=== PATIENT | female | born 1940 | race Caucasian/White ===

== ENCOUNTER 2017-06-12 18:15 | Observation (INO) | payer OTHER ==
--- NOTE | 2017-06-12 18:38 | CPEKG ---
Heart Rate: 69 RR Interval: 870 P-R Interval: 156 QRSD Interval: 88 QT Interval: 388 QTC Interval: 416 P [place]: 36 QRS [place]: -19 T Wave [place]: 33 EKG Severity - OTHERWISE NORMAL ECG - EKG Impression: SINUS RHYTHM EKG Impression: ATRIAL PREMATURE COMPLEX EKG Impression: BORDERLINE LEFT AXIS DEVIATION Electronically Signed By: Justin Flores 12-Jun-2017 20:51:52
--- NOTE | 2017-06-12 18:48 | EDPHY ---
H & P Time Seen by Provider: 06/12/17 18:28 HPI/ROS: CHIEF COMPLAINT: Pain in the left scapula HISTORY OF PRESENT ILLNESS: This 77-year-old woman has a family history of coronary disease with the father who had an DE at her age. She felt fine until yesterday. She today felt very very tired and developed at 1400 mild pain in the left shoulder blade in her back radiating to her left arm. She had throbbing in her left arm and extreme fatigue, not better worse with exertion or position. No shortness of breath or coughing. A little bit of radiation to the anterior surface of her left chest. Currently her symptoms are almost gone , except she still feels very very tired. REVIEW OF SYSTEMS: Eye: no change in vision ENT: no sore throat Cardiac: HPI Pulmonary: no cough or SOB Abdomen: no vomiting, diarrhea, abdominal pain , some associated nausea with the above symptoms but Musculoskeletal: no back pain or leg swelling Skin: no rash Neuro: no headache Constitutional: no fever : no urinary symptoms A comprehensive 10 point review of systems is otherwise negative aside from elements mentioned in the history of present illness. PAST MEDICAL HISTORY: Includes atrial fibrillation, appendectomy, hypothyroid, glaucoma, diverticulitis, DVT. Social history: Nonsmoker. Here with her . General Appearance: Alert and conversant, cooperative. Eyes: No scleral icterus. ENT, Mouth: Normal mucous membranes. Respiratory: Normal respiratory effort, breath sounds equal, lungs are clear to auscultation. Cardiovascular: Regular rate and rhythm. 3/6 systolic murmur which the patient says is not new. Gastrointestinal: Abdomen is soft and non tender. Neurological: Alert and oriented x3. Normally conversant. Face symmetric, normal movement and sensation in all extremities. Skin: Warm and dry, no rashes. Musculoskeletal: No peripheral edema and no joint swelling. No calf tenderness. Psychiatric: Not agitated. Emergency Department course/MDM: History is suspicious for ACS. EKG shows left axis but no ischemic changes. Admission for risk stratification, serial troponins. I think that pulmonary embolism would be unlikely with therapeutic INR. 1935: Jason, admit. Smoking Status: Never smoked Constitutional: Initial Vital Signs Temperature (C) 36.9 C 06/12/17 18:20 Heart Rate 77 06/12/17 18:20 Respiratory Rate 16 06/12/17 18:20 Blood Pressure 138/72 H 06/12/17 18:20 O2 Sat (%) 91 L 06/12/17 18:20 O2 Delivery Mode Room Air Allergies/Adverse Reactions: cephalexin [Cephalexin] Allergy (Intermediate, Verified 06/12/17 18:23) metronidazole [From Flagyl] Allergy (Verified 06/12/17 18:23) oxycodone Allergy (Verified 06/12/17 18:23) Home Medications: Medication Instructions Recorded Levothyroxine [Synthroid 100 mcg 100 mcg PO MOTUWETHFRSA@0600 12/03/15 (*)] Multivitamins [Multivitamin (*)] 1 each PO DAILY 12/03/15 Metoprolol Succinate Xr [Toprol Xl 25 mg PO DAILY #30 tab 12/04/15 25 mg (*)] Warfarin Sodium [Coumadin 7.5MG 7.5 mg PO DAILY@09 09/27/16 (*)] FLUTICASONE/SALMETEROL [ADVAIR HFA 2 puffs IH DAILY 06/12/17 230-21 MCG INHALER] Simvastatin [Zocor] 20 mg PO HS 06/12/17 Medical Decision Making - Diagnostics EKG Interpretation: 12-lead EKG interpreted by me; official reading is in trace master. My interpretation is sinus rhythm rate 69 with PAC and borderline left axis, no ST changes. Imaging Results: Imaging Impressions Chest X-Ray 06/12/17 18:47 Impression: 1. Mild cardiomegaly. No failure or acute process. 2. Chronic airways disease. Chest x-ray personally interpreted shows old left humerus hardware, otherwise negative. Differential Diagnosis: Differential diagnosis considered for chest pain including but not limited to myocardial ischemia, aortic dissection, pericarditis, pulmonary embolus, chest wall pain, pleural inflammation and pulmonary infectious causes. - Data Points Laboratory Results: Laboratory Results 06/12/17 18:40 06/12/17 18:40 06/12/17 06/12/17 06/12/17 18:40 18:40 18:40 WBC 4.10 10^3/uL 10^3/uL (3.80-9.50) RBC 4.05 10^6/uL L 10^6/uL (4.18-5.33) Hgb 12.7 g/dL g/dL (12.6-16.3) Hct 38.2 % % (38.0-47.0) MCV 94.3 fL fL (81.5-99.8) MCH 31.4 pg pg (27.9-34.1) MCHC 33.2 g/dL g/dL (32.4-36.7) RDW 13.8 % % (11.5-15.2) Plt Count 162 10^3/uL 10^3/uL (150-400) MPV 9.8 fL fL (8.7-11.7) Neut % (Auto) 61.6 % % (39.3-74.2) Lymph % (Auto) 19.5 % % (15.0-45.0) Ray % (Auto) 16.3 % H % (4.5-13.0) Eos % (Auto) 1.7 % % (0.6-7.6) Baso % (Auto) 0.7 % % (0.3-1.7) Nucleat RBC Rel Count 0.0 % % (0.0-0.2) Absolute Neuts (auto) 2.52 10^3/uL 10^3/uL (1.70-6.50) Absolute Lymphs (auto) 0.80 10^3/uL L 10^3/uL (1.00-3.00) Absolute Monos (auto) 0.67 10^3/uL 10^3/uL (0.30-0.80) Absolute Eos (auto) 0.07 10^3/uL 10^3/uL (0.03-0.40) Absolute Basos (auto) 0.03 10^3/uL 10^3/uL (0.02-0.10) Absolute Nucleated RBC 0.00 10^3/uL 10^3/uL (0-0.01) Immature Gran % 0.2 % % (0.0-1.1) Immature Gran # 0.01 10^3/uL 10^3/uL (0.00-0.10) PT 28.0 SEC H SEC (12.0-15.0) INR 2.58 H (0.83-1.16) APTT 35.6 SEC SEC (23.0-38.0) Sodium 137 mEq/L mEq/L (134-144) Potassium 4.2 mEq/L mEq/L (3.5-5.2) Chloride 104 mEq/L mEq/L (97-110) Carbon Dioxide 22 mEq/l mEq/l (22-31) Anion Gap 11 mEq/L mEq/L (8-16) BUN 22 mg/dL mg/dL (7-23) Creatinine 0.8 mg/dL mg/dL (0.6-1.0) Estimated GFR > 60 Glucose 99 mg/dL mg/dL (70-100) Calcium 8.8 mg/dL mg/dL (8.5-10.4) Troponin I < 0.012 ng/mL ng/mL (0.000-0.034) Departure - Departure Disposition: [facility] Inpatient Acute Clinical Impression: Chest pain Qualifiers: Chest pain type: unspecified Qualified Code(s): R07.9 - Chest pain, unspecified Condition: Good Referrals: CELESTINO BAZAN [Primary Care Provider] - As per Instructions
[2017-06-12 18:56] LABS: % IMMATURE GRANULYOCYTES 0.2 % (0.0-1.1); ABSOLUTE IMMATURE GRANULOCYTES 0.01 10^3/uL (0.00-0.10); ADD DIFF? NO; ADD MORPH? NO; ADD SCAN? NO; ATYPICAL LYMPHOCYTE FLAG 40 (0-99); FRAGMENT RBC FLAG 0 (0-99); HEMATOCRIT 38.2 % (38.0-47.0); HEMOGLOBIN 12.7 g/dL (12.6-16.3); LEFT SHIFT FLG 0 (0-99); LIPEMIA HEMOLYSIS FLAG 80 (0-99); MEAN CELL HEMOGLOBIN 31.4 pg (27.9-34.1); MEAN CELL HEMOGLOBIN CONCENTR. 33.2 g/dL (32.4-36.7); MEAN CELL VOLUME 94.3 fL (81.5-99.8); MEAN PLATELET VOLUME 9.8 fL (8.7-11.7); PLATELET CLUMPS FLAG 0 (0-99); PLATELET COUNT 162 10^3/uL (150-400); RED BLOOD CELL COUNT 4.05 10^6/uL (4.18-5.33); RED CELL DISTRIBUTION WIDTH 13.8 % (11.5-15.2)
[2017-06-12 19:02] LABS: ANION GAP 11 mEq/L (8-16); CALCIUM 8.8 mg/dL (8.5-10.4); CARBON DIOXIDE 22 mEq/l (22-31); CHLORIDE 104 mEq/L (97-110); CREATININE 0.8 mg/dL (0.6-1.0); GLOMERULAR FILTRATION RATE > 60; GLUCOSE 99 mg/dL (70-100); POTASSIUM 4.2 mEq/L (3.5-5.2); SODIUM 137 mEq/L (134-144)
[2017-06-12 19:06] LABS: INR 2.58 (0.83-1.16)
[2017-06-12 19:07] LABS: APTT 35.6 SEC (23.0-38.0)
[2017-06-12 19:14] LABS: TROPONIN I < 0.012 ng/mL (0.000-0.034)
[2017-06-12] MEDS ORDERED: ATORVASTATIN CALCIUM 10 MG TAB PO SCH (21:00)
[2017-06-12] MEDS ORDERED: ONDANSETRON DISINTEGRATING 4 MG TAB PO PRN (21:08)
[2017-06-12] MEDS ORDERED: ACETAMINOPHEN 325 MG TAB PO PRN (21:08)
[2017-06-12] MEDS ORDERED: ONDANSETRON 4 MG/2 ML VIAL IVP PRN (21:08)
--- NOTE | 2017-06-12 21:53 | GHP ---
[f rep st] HISTORY AND PHYSICAL DATE OF ADMISSION: 06/12/2017 CHIEF COMPLAINT: Left scapular and arm pain. HISTORY OF PRESENT ILLNESS: A 77-year-old female, with a history of atrial fibrillation, treated by Cardiology in [place], who presents with sudden onset this afternoon of left scapular aching pain. Th e patient reports feeling fatigued earlier in the morning, and then at approximately 1 p.m., had prog ressing achy discomfort of her left scapula that then had progressed and radiated down her left arm. The patient had persistent symptoms until her presented home at 5 p.m., at which time, they came to the emergency department. By 6 p.m., her symptoms had improved a little, and at the time of my interview they are nearly resolved. She denied any anterior chest pain, did have some associated shortness of breath and diaphoresis. No nausea or vomiting. The patient has had a stress test by [facility] outpatient director card in the last year and a half, which she reports is negative, had an echocard iogram performed at that time as well, which she reports as showing mitral valve regurgitation. The patient denies any changes in her bowel habits, urinary habits. Denies any lower extremity edema, my algias or arthralgias, upper respiratory symptoms, or dysuria. PAST MEDICAL HISTORY: 1. Atrial fibrillation, on anticoagulation. 2. Hypothyroidism. 3. Hyperlipidemia. SOCIAL HISTORY: Negative for tobacco, alcohol, or illicit drugs. FAMILY HISTORY: Positive for heart disease. Both parents developing coronary disease in their 70s. ADVANCED DIRECTIVES: Patient is full cor, full tube. REVIEW OF SYSTEMS: A 10-point review of systems is negative with the exception of that reported in t he HPI. PHYSICAL EXAMINATION: VITAL SIGNS: Blood pressure 121/76, heart rate 67, respiratory rate 16, 95% o n 2 L, 36.7. GENERAL: This is a healthy-appearing elderly female, lying flat in bed. HEENT: Notab le for moist mucous membranes. Eyes: Negative for any icterus. CARDIAC: Patient has regular rate and rhythm. Patient does have a loud systolic murmur heard best at the left sternal border. PULMONA RY: Good respiratory effort. Clear to auscultation. GASTROINTESTINAL: Positive bowel sounds. ABD OMEN: Soft. MUSCULOSKELETAL: Negative for any lower extremity edema. SKIN: Negative for any rash es. NEUROLOGIC: She is alert and oriented x3. PSYCHIATRIC: She is pleasant and cooperative on int erview and examination. LABORATORY DATA: White count is 4.1, hematocrit 38.2, platelets of 162. INR 2.5. Creatinine 0.8. T roponin less than 0.012. EKG, which I personally reviewed and interpreted, shows sinus rhythm, sourav l axis, normal intervals, with no acute ST-T changes. Chest x-ray, which I personally reviewed and i nterpreted, shows no acute infiltrates or edema. ASSESSMENT AND PLAN: This is a 77-year-old female, with a history of atrial fibrillation, and family history for coronary disease, who presents with complaints of scapular and arm pain. 1. Scapular/arm pain, certainly concerning for an anginal equivalent in this patient with hyperlipid emia and family history. We will rule the patient out with serial troponins and EKGs. If she rules out overnight on telemetry, we will order a Lexiscan in the morning. 2. Hypothyroidism. We will continue her Synthroid therapy. 3. Atrial fibrillation. The patient is currently in sinus rhythm. We will continue her anticoagula tion and metoprolol at her outpatient dosing. 4. Prophylaxis: Full-dose anticoagulation. DIET: Cardiac. DISPOSITION: I expect in less than 2 midnights if the patient rules out and has negative stress test ing. I have discussed the case with the emergency room physician. Patient will be triaged to the PCU for rule out and care. /[id number]/MODL
[2017-06-13 05:24] LABS: ANION GAP 9 mEq/L (8-16); CALCIUM 8.7 mg/dL (8.5-10.4); CARBON DIOXIDE 24 mEq/l (22-31); CHLORIDE 105 mEq/L (97-110); CREATININE 0.7 mg/dL (0.6-1.0); GLOMERULAR FILTRATION RATE > 60; GLUCOSE 83 mg/dL (70-100); SODIUM 138 mEq/L (134-144)
[2017-06-13 05:31] LABS: INR 2.61 (0.83-1.16); PROTIME(PATIENT) 28.2 SEC (12.0-15.0)
[2017-06-13] MEDS ORDERED: LEVOTHYROXINE 100 MCG TAB PO SCH (06:00)
[2017-06-13 07:59] VITALS: RESP 17
[2017-06-13] MEDS ORDERED: WARFARIN SODIUM 7.5 MG TAB PO SCH (09:00)
[2017-06-13] MEDS ORDERED: MULTIVITAMINS 1 EACH TAB PO SCH (09:00)
[2017-06-13] MEDS ORDERED: METOPROLOL SUCCINATE XR 25 MG TAB PO SCH (09:00)
[2017-06-13] MEDS ORDERED: Fluticasone/Salmeterol [Advair Hfa 230-21 Mcg Inhaler] IH SCH (09:00)
[2017-06-13] MEDS ORDERED: REGADENOSON 0.4 MG/5 ML SYR IVP ONE (09:34)
[2017-06-13] MEDS ORDERED: FLU VACC QS 2017-18 (3YR+)/PF 0.5 ML SYR (FLUARIX QUAD) IM ONE (10:00)
--- NOTE | 2017-06-13 11:17 | CPR ---
[f rep st] NONINVASIVE CARDIAC PROCEDURE REPORT PROCEDURE PERFORMED: Lexiscan injection of Lexiscan myocardial perfusion imaging study. INDICATION FOR PROCEDURE: Left arm and back pain, evaluation for acute coronary syndrome. Patient w ith known history of paroxysmal atrial fibrillation. PRE: After obtaining informed consent, ensuring the patient's n.p.o. status of caffeine for greater than 12 hours, she was placed on electrocardiogram. Initial EKG showed sinus rhythm, normal axis, no significant ST or T-wave abnormalities. Initial blood pressure 106/72, saturating 93% on 1 L nasal cannula. The patient denied any chest pain, shortness of breath, or symptoms suggesting ischemia. INJECTION: The patient was given Lexiscan slow IV push, followed by nuclear isotope. She was noted to have an elevated heart rate up to 90 beats per minute, with no significant EKG changes. No arrhyt hmias noted. Her blood pressure remained stable. She was fairly much asymptomatic of any side effec ts from the injection. Within 5 minutes, her heart rate returned down to 85 beats per minute. Final blood pressure 106/68, saturation 97%. Her vital signs were stable. IMPRESSION: 77-year-old female, being evaluated for cardiac ischemia. No significant EKG changes no laila with Lexiscan injection. No significant side effects. Vital signs are stable. She is finishing post-stress myocardial perfusion imaging in nuclear medicine at this time. /[id number]/MODL
[2017-06-13 11:18] VITALS: BP 121/57; PULSE 93; TEMP 97.6; O2SAT 91
--- NOTE | 2017-06-13 15:37 | GDS ---
[f rep st] DISCHARGE SUMMARY NEW AND ACUTE DIAGNOSES: 1. Chest pain, noncardiac in origin. 2. Atrial fibrillation in good control. 3. Anticoagulation adequate and in therapeutic range. CHRONIC DIAGNOSES: 1. Hypothyroidism. 2. Hyperlipidemia. 3. Reactive airway disease. CONSULTATION: Cardiology. PROCEDURES: Lexiscan Myoview showing no evidence of flow limitation, no evidence of ischemic induced or fixed ischemia, and a normal left ventricular ejection fraction. HOSPITAL COURSE: A 77-year-old female with a history of atrial fibrillation who presented with left scapular aching pain which lasted approximately 6 hours [employer] but resolved at the time of her evaluatio n in the emergency department. She was admitted. Serial troponins were negative. Lexiscan Myoview showed no evidence of ECG changes with Lexiscan and Myoview showed no evidence of induced or fixed ca rdiac ischemia. LV function was normal. She was pain free throughout the hospitalization. Her rhyt hm remained stable in atrial fibrillation and her Coumadin anticoagulation was within therapeutic ran ge of 2.6. The patient will be discharged to outpatient care. She has been reassured. The origin o f her pain is unclear at this time. Her wet pour mixer is Dr. Osorio at [facility]. DISCHARGE MEDICATIONS: These are the same as her admission medications. There are no deletions or a dditions. 1. Multivitamin daily. 2. Synthroid 100 mcg daily. 3. Toprol-XL 25 mg daily. 4. Coumadin 7.5 mg daily. 5. Simvastatin 20 mg daily. 6. Fluticasone and salmeterol inhaler 230/21 mcg inhaler 2 puffs b.i.d. The patient will follow up with her wet pour mixer, Dr. Osorio, or with Dr. Natalia Shaffer. Time: This discharge required 40 minutes, greater than 50% to student services counselor and coordinate her care and ex plain findings to the patient. /[id number]/MODL
--- NOTE | 2017-06-13 16:50 | ASDISCHSUM ---
Discharge Information Plan Status:Home with No Needs Medically Cleared to Leave: Discharge Date:06/13/2017 04:10 PM CM D/C Disposition:Home, Routine, Self-Care ADT D/C Disposition:Home, Routine, Self-Care Projected Discharge Date:06/13/2017 04:10 PM Transportation at D/C:Family Discharge Delay Reason: Follow-Up Date:06/13/2017 04:10 PM Discharge Slot: Final Diagnosis: Placement Information Patient Contact Information Contact Name:JUSTIN Relationship: Address:[address] City:[place] Alternate Phone: [facility]/Zip Code:[place] [address] Email: Financial Information Financial Class:HMO and PPO Plans Primary Plan Desc:[employer] PLAN Primary Plan Number:[id number] Secondary Plan Desc: Secondary Plan Number: Assessment Information Intervention Information
== END 2017-06-13 16:10 | disposition home or self-care (01) ==
LOC: F2W 21:14
PROVIDERS: ADMIT Hospitalist; ATTEND Internal Medicine Pulmonary Disease
DX: R07.89 Other chest pain (principal); I48.91 Unspecified atrial fibrillation; Z79.01 Long term (current) use of anticoagulants; E03.9 Hypothyroidism, unspecified; I10 Essential (primary) hypertension; J45.909 Unspecified asthma, uncomplicated; Z23 Encounter for immunization
CPT/HCPCS: 71020; 78452; 90471; 93005; 93017; A9500; G0378; G0008; J2785

== ENCOUNTER 2017-06-15 23:04 | Emergency (ER) | payer OTHER ==
[2017-06-15 23:09] VITALS: RESP 16; TEMP 97.9
--- NOTE | 2017-06-15 23:40 | EDPHY ---
H & P Stated Complaint: Nausea/fatigue/anxiety HPI/ROS: CHIEF COMPLAINT: Weakness, fatigue, nausea HISTORY OF PRESENT ILLNESS: Patient complains of 1 day history of weakness, feeling tired, feeling like she has no energy and nausea. The symptoms started abruptly this morning. They have been constant throughout the day. No chest pain, but did have some chest pain earlier this week. She was admitted on Saturday for that. Troponins were negative and she had a stress test done nuclear study on that was reportedly negative. Yesterday she felt quite well. Symptoms started about this morning. She has no fever but did feel 1 episode of diaphoresis. No abdominal complaints. No urinary complaints. No rash. Very weak when she attempts to ambulate. No other associated complaints or modifying factors. REVIEW OF SYSTEMS: Ten systems reviewed and are negative unless otherwise noted in the HPI PAST MEDICAL HISTORY: Hypothyroid, atrial fibrillation rate controlled, asthma, dyslipidemia PAST SURGICAL HISTORY: Orthopedic surgery SOCIAL HISTORY: Nonsmoker. Lives [place] her spouse FAMILY HISTORY: Noncontributory EXAMINATION General Appearance: Alert, no distress Head: normocephalic, atraumatic Eyes: Pupils equal and round, no conjunctival pallor or injection ENT, Mouth: Mucous membranes moist. Airway patent Neck: Normal inspection, supple, non-tender Respiratory: Lungs are clear to auscultation. No wheezing, rhonchi or crackles Cardiovascular: Irregularly irregular rhythm. Regular rate. Diastolic murmur Gastrointestinal: Abdomen is soft and nontender Back: non-tender, no bony abnormalities Neurological: GCS 15.A &O, nonfocal, normal gait Skin: Warm and dry, no rash. No petechiae or purpura Extremities: Nontender, no pedal edema Psychiatric: Mood and affect normal DIFFERENTIAL DIAGNOSES: Including but not limited to ACS, weakness, fluid, hypothyroid, UTI, pneumonia, electrolyte disturbance, dehydration MDM: 11:35 p.m. Nausea, fatigue, weakness and 69-year-old with strong family history of coronary artery disease. No coronary artery disease that she has been diagnosed with. Recent negative stress test after so troponins. She was feeling well until today. She has no cough or shortness of breath. No fever but did have episode of chills. No urinary complaints. Vital signs are within normal limits. Cardiac laboratory studies have been ordered, EKG ordered. She is in no acute distress. 12:30 a.m. Patient re-evaluated. Resting comfortably in no acute distress. EKG is normal. CBC normal. Remainder of laboratory studies are pending. 1:30 a.m. Patient re-evaluated. Laboratory studies are still pending regarding her troponin, TSH and influenza. Electrolytes are normal. Hemoglobin within acceptable limits. Vital signs remained stable. 1:55 a.m. Negative laboratory studies. No chest pain of any kind today or during her stay here. Her symptoms started this morning, thus the troponin is sensitive. I did offer admission for observation although I do not feel she warranted at this time. She has declined. She and her spouse feel more comfortable going home. I do feel that she is stable for discharge home. She has had multiple negative troponins and a negative stress test this week. She has excellent follow-up with her primary care physician and podiatric medicine doctor. We discussed strict ED precautions including return for any chest pain of any kind, worsening weakness or lethargy. She is comfortable with this plan and discharged home in stable condition. Her influenza and TSH test are pending at this time. She will follow up with those in the morning. Additionally, I will follow up with his laboratory studies tomorrow. Source: Patient, Family, Old records Exam Limitations: No limitations - Personal History Current Tetanus/Diphtheria Vaccine: Yes Current Tetanus Diphtheria and Acellular Pertussis (TDAP): Yes Tetanus Vaccine Date: 4 YEARS AGO - Medical/Surgical History Hx Asthma: No Hx Chronic Respiratory Disease: No Hx Diabetes: No Hx Cardiac Disease: Yes Hx Renal Disease: No Hx Cirrhosis: No Hx Alcoholism: No Hx HIV/AIDS: No Hx Splenectomy or Spleen Trauma: No Other PMH: APPY at 4Y/O, HYPOTHYROID, ARTHRITIS, glaucoma- surgical repair, diverticulitsis, bursitis- left hip, blood clots to legs 12 years ago, kidney stones currently, left arm humerus fx . asthma, afib - Social History Smoking Status: Never smoked Constitutional: Initial Vital Signs Temperature (C) 97.9 F 06/15/17 23:07 Heart Rate 72 06/15/17 23:07 Respiratory Rate 16 06/15/17 23:07 Blood Pressure 137/67 H 06/15/17 23:07 O2 Sat (%) 94 06/15/17 23:07 O2 Delivery Mode Room Air Allergies/Adverse Reactions: cephalexin [Cephalexin] Allergy (Intermediate, Verified 06/15/17 23:09) metronidazole [From Flagyl] Allergy (Verified 06/15/17 23:09) oxycodone Allergy (Verified 06/15/17 23:09) Home Medications: Medication Instructions Recorded Levothyroxine [Synthroid 100 mcg 100 mcg PO MOTUWETHFRSA@0600 12/03/15 (*)] Multivitamins [Multivitamin (*)] 1 each PO DAILY 12/03/15 Metoprolol Succinate Xr [Toprol Xl 25 mg PO DAILY #30 tab 12/04/15 25 mg (*)] Warfarin Sodium [Coumadin 7.5MG 7.5 mg PO DAILY@09/27/16 (*)] FLUTICASONE/SALMETEROL [ADVAIR HFA 2 puffs IH DAILY 06/12/17 230-21 MCG INHALER] Simvastatin [Zocor] 20 mg PO HS 06/12/17 Medical Decision Making - Data Points Laboratory Results: Laboratory Results 06/15/17 23:58 06/15/17 23:58 Departure - Departure Disposition: Home, Routine, Self-Care Clinical Impression: Weakness, Nausea Condition: Good Instructions: Weakness (ED) Additional Instructions: 1. Contact primary care physician for further care 2. Return to emergency department for worsening symptoms or any chest pain of any kind Referrals: CELESTINO BAZAN [Primary Care Provider] - As per Instructions KRISHNA DURAN [Non Staff Provider ()] - As per Instructions
--- NOTE | 2017-06-15 23:44 | CPEKG ---
Heart Rate: 63 RR Interval: 952 P-R Interval: 156 QRSD Interval: 90 QT Interval: 436 QTC Interval: 447 P Art[place]: 52 QRS [place]: 2 T Wave [place]: 29 EKG Severity - NORMAL ECG - EKG Impression: SINUS RHYTHM Electronically Signed By: John Guzman 16-Jun-2017 06:45:14
[2017-06-16 00:07] LABS: % IMMATURE GRANULYOCYTES 0.3 % (0.0-1.1); ABSOLUTE IMMATURE GRANULOCYTES 0.02 10^3/uL (0.00-0.10); ADD DIFF? NO; ADD MORPH? NO; ADD SCAN? NO; ATYPICAL LYMPHOCYTE FLAG 40 (0-99); FRAGMENT RBC FLAG 0 (0-99); HEMOGLOBIN 11.7 g/dL (12.6-16.3); LEFT SHIFT FLG 0 (0-99); LIPEMIA HEMOLYSIS FLAG 80 (0-99); MEAN CELL HEMOGLOBIN 31.5 pg (27.9-34.1); MEAN CELL HEMOGLOBIN CONCENTR. 33.4 g/dL (32.4-36.7); MEAN CELL VOLUME 94.3 fL (81.5-99.8); MEAN PLATELET VOLUME 9.9 fL (8.7-11.7); PLATELET CLUMPS FLAG 20 (0-99); PLATELET COUNT 179 10^3/uL (150-400); RED BLOOD CELL COUNT 3.71 10^6/uL (4.18-5.33); RED CELL DISTRIBUTION WIDTH 13.8 % (11.5-15.2)
[2017-06-16 00:17] LABS: APTT 34.9 SEC (23.0-38.0); INR 3.48 (0.83-1.16); PROTIME(PATIENT) 35.5 SEC (12.0-15.0)
[2017-06-16 01:06] LABS: ANION GAP 10 mEq/L (8-16); CARBON DIOXIDE 21 mEq/l (22-31); CHLORIDE 107 mEq/L (97-110); CREATININE 0.9 mg/dL (0.6-1.0); GLOMERULAR FILTRATION RATE > 60; GLUCOSE 100 mg/dL (70-100); POTASSIUM 4.3 mEq/L (3.5-5.2); SODIUM 138 mEq/L (134-144)
[2017-06-16 01:12] LABS: COLOR YELLOW; LEUKOCYTE ESTERASE,URINE NEGATIVE (NEGATIVE); NITRITE,URINE NEGATIVE (NEGATIVE)
[2017-06-16 01:15] LABS: MUCUS TRACE /lpf (NONE-1+)
[2017-06-16 01:38] LABS: TROPONIN I < 0.012 ng/mL (0.000-0.034)
[2017-06-16 02:14] VITALS: BP 134/69; PULSE 67; O2SAT 96
== END 2017-06-16 02:13 | disposition home or self-care (01) ==
DX: R53.1 Weakness (principal); R11.0 Nausea; J45.909 Unspecified asthma, uncomplicated; Z79.01 Long term (current) use of anticoagulants

== ENCOUNTER 2018-03-12 20:37 | Emergency (ER) | payer OTHER ==
--- NOTE | 2018-03-12 21:26 | EDPHY ---
H & P Stated Complaint: L LEG PAIN BEHIND THIGH/SINCE LAST NIGHT Source: Patient Exam Limitations: No limitations - Personal History Current Tetanus Diphtheria and Acellular Pertussis (TDAP): Yes Tetanus Vaccine Date: 4 YEARS AGO - Medical/Surgical History Hx Asthma: Yes Hx Chronic Respiratory Disease: No Hx Diabetes: No Hx Cardiac Disease: Yes Hx Renal Disease: No Hx Cirrhosis: No Hx Alcoholism: No Hx HIV/AIDS: No Hx Splenectomy or Spleen Trauma: No Other PMH: APPY at 4Y/O, HYPOTHYROID, ARTHRITIS, glaucoma- surgical repair, diverticulitsis, bursitis- left hip, blood clots to legs 12 years ago, kidney stones currently, left arm humerus fx . asthma, afib, SINUS SX - Social History Smoking Status: Never smoked Time Seen by Provider: 03/12/18 21:25 HPI/ROS: HPI: This is a 78-year-old female who presents with Chief Complaint: L LEG PAIN BEHIND THIGH/SINCE LAST NIGHT Location: Left leg Quality: Pain Duration: 24 hr Signs and Symptoms: No bleeding, no radiation, no numbness, no weakness, no tingling, no incontinence, no decreased range of motion, no swelling, + pain, no fever Timing: Acute Severity: [id number] Context: O patient reports that yesterday evening she started to feel mild, nonradiating cramping pain in the posterior left calf that was nonradiating in nature. She describes the pain as mild in intensity. She has had no trauma or injury. Her INR was 2 approximately 5 days ago. She reports compliance in taking her Coumadin. Patient reports that she has not had any strenuous activity. She denies a history of restless legs or muscle cramps. She has no shortness of breath or chest pain. She reports that she only has minimal pain at this time. She is ambulatory without any deficits. Modifying Factors: None Comment: ROS: see HPI Constitutional: No fever, no chills, no weight loss Eyes: No blurred vision Respiratory: No shortness of breath, no cough Cardiovascular: No chest pain Gastrointestinal: No nausea, no vomiting no diarrhea Genitourinary: No dysuria Extremities: No myalgias Neurologic: No weakness, no numbness Skin: No rashes Hematologic: No bruising, no bleeding MEDICAL/SURGICAL/SOCIAL HISTORY: Medical/surgical history: APPY at 4Y/O, HYPOTHYROID, ARTHRITIS, glaucoma- surgical repair, diverticulitis, bursitis- left hip, blood clots to legs 12 years ago, kidney stones currently, left arm humerus fx . asthma, afib, SINUS SX Social history: CONSTITUTIONAL: Elderly pleasant white female, awake and alert, no obvious distress HEENT: Atraumatic and normocephalic. NECK: supple, no midline tenderness, flexion 45 degrees, extension 45 degrees, right and left lateral flexion 45 degrees. No meningismus. Cardiovascular: Normal S1/S2, regular rate, regular rhythm, without murmur rub or gallop. PULMONARY/CHEST: Symmetrical and nontender. no crepitus. Clear to auscultation bilaterally. Good air movement. No accessory muscle usage. ABDOMEN: Soft, nondistended, nontender, no ecchymosis. PELVIC: no pain with rocking; bilateral hips flexion 125 degrees, extension 30 degrees, with no pain internal rotation and no pain external rotation. BACK: No midline tenderness, no paraspinous spasm, deep tendon reflexes 2/2, no pain with straight leg raise, No foot drop. Achilles reflexes are equal bilaterally. Able to walk on heels and toes without difficulty. EXTREMITIES: 2/2 pulses, strength 5/5, left calf shows no swelling, erythema, tenderness to palpation. No varicose vein. Legs are equal in size. Negative Homans sign. Varicose veins noted bilateral lower extremities. no deformities , no clubbing, no cyanosis or edema. NEUROLOGICAL: no focal neuro deficits. GCS 15. Light touch sensation intact. SKIN: Warm and dry, no erythema. no rash. Good capillary refill. (Juan Carlos,Terra) Constitutional: Initial Vital Signs Temperature (C) 36.5 C 03/12/18 20:42 Heart Rate 81 03/12/18 20:42 Respiratory Rate 16 03/12/18 20:42 Blood Pressure 138/63 H 03/12/18 20:42 O2 Sat (%) 93 03/12/18 20:42 O2 Delivery Mode Room Air Allergies/Adverse Reactions: cephalexin [Cephalexin] Allergy (Intermediate, Verified 06/15/17 23:09) metronidazole [From Flagyl] Allergy (Verified 06/15/17 23:09) oxycodone Allergy (Verified 06/15/17 23:09) Home Medications: Medication Instructions Recorded Levothyroxine [Synthroid 100 mcg 100 mcg PO MOTUWETHFRSA@0600 12/03/15 (*)] Multivitamins [Multivitamin (*)] 1 each PO DAILY 12/03/15 Metoprolol Succinate Xr [Toprol Xl 25 mg PO DAILY #30 tab 12/04/15 25 mg (*)] Warfarin Sodium [Coumadin 7.5MG 7.5 mg PO DAILY@09 09/27/16 (*)] FLUTICASONE/SALMETEROL [ADVAIR HFA 2 puffs IH DAILY 06/12/17 230-21 MCG INHALER] Simvastatin [Zocor] 20 mg PO HS 06/12/17 Medical Decision Making - Diagnostics Imaging Results: Imaging Impressions Extremity Venous Study 03/12/18 21:31 Impression: Chronic, nonocclusive femoral-popliteal venous thrombosis. Similar appearance to prior exam. ED Course/Re-evaluation: I did not see this patient while she was in the emergency department. However her care was discussed with the PA while the patient was in the department. I agree with treatment plan and management (Randy Byrd) Left lower extremity ultrasound and INR level ordered Left leg exam is completely benign. Vital signs reviewed upon arrival and stable. INR is 2.54 Ultrasound shows: Chronic, nonocclusive femoral-popliteal venous thrombosis. Similar appearance to prior exam. No signs of neurovascular compromise/tenting of skin/compartment syndrome/ extremities and joints examined above and below area of concern and are neurovascularly intact/cellulitis/for vascular disease. This patient was seen under the supervision of my secondary supervising physician. I evaluated care for this patient independently. Discussed this patient with Dr. Byrd who did not see the patient. (Brianne Rangel) Differential Diagnosis: Leg swelling including but not limited to hypoalbuminemia, congestive heart failure, cor pulmonale, chronic venous stasis and DVT. (Brianne Rangel) - Data Points Laboratory Results: Laboratory Results 03/12/18 21:56 03/12/18 03/12/18 21:56 21:56 PT 27.3 SEC H SEC (12.0-15.0) INR 2.54 H (0.83-1.16) Sodium 142 mEq/L mEq/L (135-145) Potassium 4.7 mEq/L mEq/L (3.3-5.0) Chloride 107 mEq/L mEq/L (97-110) Carbon Dioxide 21 mEq/l L mEq/l (22-31) Anion Gap 14 mEq/L mEq/L (8-16) BUN 21 mg/dL mg/dL (7-23) Creatinine 0.8 mg/dL mg/dL (0.6-1.0) Estimated GFR > 60 Glucose 114 mg/dL H mg/dL (70-100) Calcium 8.8 mg/dL mg/dL (8.5-10.4) Departure - Departure Disposition: Home, Routine, Self-Care Clinical Impression: Chronic deep vein thrombosis (DVT) of left lower extremity Qualifiers: Affected thrombotic vein of extremity: femoral Qualified Code(s): I82.512 - Chronic embolism and thrombosis of left femoral vein Condition: Good Instructions: Deep Vein Thrombosis (ED) Referrals: CELESTINO BAZAN [Primary Care Provider] - 5-7 days, if not improved
[2018-03-12 22:20] LABS: INR 2.54 (0.83-1.16); PROTIME(PATIENT) 27.3 SEC (12.0-15.0)
[2018-03-12 23:13] VITALS: BP 118/48
== END 2018-03-12 23:13 | disposition home or self-care (01) ==
DX: I82.512 Chronic embolism and thrombosis of left femoral vein (principal); J45.909 Unspecified asthma, uncomplicated

== ENCOUNTER → 2018-10-23 | Outpatient (CLI) | payer OTHER | LOC: FIMAGING 08:04 | PROVIDERS: ATTEND Radiology Diagnostic Radiology | DX: I83.019 Varicose veins of right lower extremity with ulcer of unspecified site (principal); I83.029 Varicose veins of left lower extremity with ulcer of unspecified site; Z86.718 Personal history of other venous thrombosis and embolism; Z79.01 Long term (current) use of anticoagulants ==

== ENCOUNTER 2018-11-24 18:20 | Inpatient (IN) | payer OTHER ==
--- NOTE | 2018-11-24 18:23 | EDPHY ---
H & P - Personal History Tetanus Vaccine Date: 4 YEARS AGO - Medical/Surgical History Hx Asthma: Yes Hx Chronic Respiratory Disease: No Hx Diabetes: No Hx Cardiac Disease: Yes Hx Renal Disease: No Hx Cirrhosis: No Hx Alcoholism: No Hx HIV/AIDS: No Hx Splenectomy or Spleen Trauma: No Other PMH: APPY at 4Y/O, HYPOTHYROID, ARTHRITIS, glaucoma- surgical repair, diverticulitsis, bursitis- left hip, blood clots to legs 12 years ago, kidney stones currently, left arm humerus fx . asthma, afib, SINUS SX - Social History Smoking Status: Never smoked Time Seen by Provider: 11/24/18 18:22 Constitutional: Initial Vital Signs Temperature (C) 36.7 C 11/24/18 18:20 Heart Rate 93 11/24/18 18:20 Respiratory Rate 20 11/24/18 18:20 Blood Pressure 156/80 H 11/24/18 18:20 O2 Sat (%) 87 L 11/24/18 18:20 O2 Delivery Mode Nasal Cannula O2 (L/minute) 2 Allergies/Adverse Reactions: cephalexin [Cephalexin] Allergy (Intermediate, Verified 11/25/18 09:39) Hives metronidazole [From Flagyl] Allergy (Verified 11/25/18 09:39) Vomiting oxycodone Allergy (Verified 11/25/18 09:39) Vomiting Home Medications: Medication Instructions Recorded Levothyroxine [Synthroid 100 mcg 100 mcg PO MOTUWETHFRSA@0600 12/03/15 (*)] Multivitamins [Multivitamin (*)] 1 each PO DAILY 12/03/15 Metoprolol Succinate Xr [Toprol Xl 25 mg PO DAILY #30 tab 12/04/15 25 mg (*)] Warfarin Sodium [Coumadin 7.5MG 7.5 mg PO SUTUTHSA 09/27/16 (*)] FLUTICASONE/SALMETEROL [ADVAIR HFA 2 puffs IH DAILY 06/12/17 230-21 MCG INHALER] Simvastatin [Zocor] 20 mg PO HS 06/12/17 Acetaminophen [Tylenol 325mg (*)] 650 mg PO Q6 PRN 11/25/18 Levothyroxine [Synthroid 50 mcg 50 mcg PO COLMENARES 11/25/18 (*)] Warfarin Sodium [Coumadin 7.5MG 3.75 mg PO MWF 11/25/18 (*)] Medical Decision Making ED Course/Re-evaluation: CHIEF COMPLAINT: Back pain HISTORY OF PRESENT ILLNESS: The patient is an anticoagulated (Warfarin) 78 y/o female with a history of atrial fibrillation, DVT and back pain arriving via EMS for back pain with left leg pain and weakness onset this morning. The patient is followed by a neurosurgeon at [facility] for her spinal and neurological problems; she last saw him 2 months ago. She denies having an MRI in the past but had an x-ray which revealed a "slipped disk". She woke up this morning and had back pain, so lied down in her bed on a hot pad. However, after lying down she was unable to move and get up, so she called EMS. No fever, headache, body aches, lightheadedness, chest pain, heart palpitations, shortness of breath, cough, abdominal pain, urinary or bowel complaints, numbness. REVIEW OF SYSTEMS: A 10 point review of systems was performed and is negative with the exception of the elements mentioned in the history of present illness. PHYSICAL EXAM: HR, BP, O2 Sat, RR. Temp noted General Appearance: Alert, well hydrated, appropriate, and non-toxic appearing. Head: Atraumatic without scalp tenderness or obvious injury Eyes: Pupils equal, round, reactive to light and accommodation, EOMI, no trauma , no injection. Ears: Clear bilaterally, no perforation, normal landmarks Nose: Atraumatic, no rhinorrhea, clear. Throat: There is no erythema or exudates, no lesions, normal tonsils, mucus membranes moist. Neck: Supple, 2+ carotid upstroke, nontender, no lymphadenopathy. Respiratory: No retractions, no distress, no wheezes, and no accessory muscle use. Lungs are clear to auscultation bilaterally. Cardiovascular: Regular rate and rhythm, no murmurs, rubs, or gallops. Bilateral carotid, radial, dorsalis pedis, and posterior tibial pulses intact. Good capillary refill all extremities. Gastrointestinal: Abdomen is soft, nontender, non-distended, no masses, no rebound, no guarding, no peritoneal signs. Musculoskeletal: Normal active ROM of all extremities, atraumatic. Neurological: Alert, appropriate, and interactive. The patient has normal DTRs and non-focal cranial nerves, motor, sensory, and cerebellar exam. Skin: No rashes, good turgor, no nodules on palpation. Past medical history: Hypothyroid, arthritis, glaucoma, diverticulosis, left hip bursitis, DVT, kidney stones, asthma, atrial fibrillation (on Warfarin) Past surgical history: Appendectomy, glaucoma surgery, sinus surgery Family history: Denies Social history: Lives in [place], , retired DIAGNOSTICS/PROCEDURES/CRITICAL CARE TIME: Lumbar MRI: Still pending at discharge DIFFERENTIAL DIAGNOSIS: The differential diagnosis for the patient's back pain included but was not limited to musculoskeletal pain, epidural abscess, herniated disk, spinal fracture, and intra-abdominal causes including urinary system. MEDICAL DECISION MAKING: The patient is an anticoagulated (Warfarin) 78 y/o female with a history of atrial fibrillation, DVT and back pain arriving via EMS presenting with back pain with left sided radiculopathy onset this morning. Due to this pain she is unable to ambulate. She is followed by a neurosurgeon at [facility] but has not had an MRI performed. Lumbar MRI ordered; 0.5mg IV Dilaudid administered. 2100: Patient care turned over to Dr. Wills at shift change. MRI still pending. (Sammy Murphy) The 9:50 p.m. We discussed the MRI results. The patient continues to have significant pain if she moves at all. She will require admission for pain control. We offered to [facility] or her neurosurgeon is. She states that she has only seen him once and would like to get a 2nd opinion here. Will add Valium and Decadron to her pain regimen. She states that she currently cannot get out of bed. She would like to go to the bathroom. 9:53 p.m. Discussed the case with Dr. Bertram Chapman who will consult tomorrow. 10:00 p.m. discussed the case with Dr. Redd who will admit. (Rocky Wills) Differential Diagnosis: Partial list of the Differential diagnosis considered include but were not limited to; radiculopathy, muscle strain, cord compression and although unlikely based on the history and physical exam, I also considered infection, fracture. (Rocky Wills) - Data Points Medications Given: Acetaminophen (Tylenol) 1,000 mg PO Q8HRS ELSA Stop: 05/23/19 22:29 Last Admin: 11/26/18 06:20 Dose: 1,000 mg Atorvastatin Calcium (Lipitor) 10 mg PO HS [facility] Stop: 05/24/19 20:59 Last Admin: 11/25/18 21:56 Dose: 10 mg Hydromorphone HCl (Dilaudid) 2 - 4 mg PO Q4HRS PRN PRN Reason: Pain, Severe Able to Take PO Stop: 12/04/18 22:27 Last Admin: 11/26/18 01:33 Dose: 2 mg Hydromorphone HCl (Dilaudid) 0.2 - 0.4 mg IVP Q2H PRN PRN Reason: Breakthrough pain Stop: 12/06/18 01:24 Last Admin: 11/26/18 06:20 Dose: 0.4 mg Levothyroxine Sodium (Synthroid) 100 mcg PO MOTUWETHFRSA@0600 [facility] Stop: 05/24/19 15:44 Last Admin: 11/26/18 06:20 Dose: 100 mcg Methocarbamol (Robaxin) 750 mg PO TID [facility] Stop: 05/24/19 21:59 Last Admin: 11/25/18 21:56 Dose: 750 mg Metoprolol Succinate (Toprol Xl) 25 mg PO DAILY [facility] Stop: 05/24/19 15:44 Last Admin: 11/25/18 17:11 Dose: 25 mg Miscellaneous Medication (Fluticasone/Salmeterol [Advair Hfa 230-21 Mcg Inhaler] ) 2 puffs IH DAILY [facility] Stop: 05/24/19 15:44 Last Admin: 11/25/18 16:57 Dose: Not Given Warfarin Sodium (Coumadin) 7.5 mg PO SuTuThSa@1600 [facility] Stop: 05/24/19 15:59 Last Admin: 11/25/18 17:11 Dose: 7.5 mg Discontinued Medications Dexamethasone (Decadron Injection) 10 mg IVP EDNOW ONE Stop: 11/24/18 22:02 Last Admin: 11/24/18 22:19 Dose: 10 mg Diazepam (Valium) 2.5 mg IVP EDNOW ONE Stop: 11/24/18 21:47 Last Admin: 11/24/18 21:50 Dose: 2.5 mg Diazepam (Valium) 5 mg PO ONCE ONE Stop: 11/26/18 06:06 Last Admin: 11/26/18 06:20 Dose: 5 mg Hydromorphone HCl (Dilaudid) 0.5 mg IVP EDNOW ONE Stop: 11/24/18 18:34 Last Admin: 11/24/18 18:55 Dose: 0.5 mg Hydromorphone HCl (Dilaudid) 2 mg PO Q4HRS PRN PRN Reason: Pain, Severe Able to Take PO Stop: 12/04/18 22:27 Last Admin: 11/25/18 23:45 Dose: 2 mg Prednisone (Prednisone) 20 mg PO ONCE ONE Stop: 11/25/18 17:56 Last Admin: 11/25/18 19:43 Dose: 20 mg Departure - Departure Disposition: [facility] Acute Clinical Impression: Low back pain Qualifiers: Chronicity: acute Back pain laterality: left Sciatica presence: with sciatica Sciatica laterality: sciatica of left side Qualified Code(s): M54.42 - Lumbago with sciatica, left side Radiculopathy Qualifiers: Spinal region: lumbar Qualified Code(s): M54.16 - Radiculopathy, lumbar region Condition: Fair Report Scribed for: aSmmy Murphy Report Scribed by: Shital Corea Date of Report: 11/24/18 Time of Report: 18:23
[2018-11-24] MEDS ORDERED: HYDROmorphONE/DILAUDID 2 MG/ML INJ IVP ONE (18:33)
[2018-11-24] MEDS ORDERED: DIAZEPAM 5 MG/ML 1 ML SYR IVP ONE (21:46)
[2018-11-24] MEDS ORDERED: DEXAMETHASONE 10 MG/ML VIAL IVP ONE (22:01)
[2018-11-24] MEDS ORDERED: ONDANSETRON 4 MG/2 ML VIAL IVP PRN (22:25)
[2018-11-24] MEDS ORDERED: ONDANSETRON DISINTEGRATING 4 MG TAB PO PRN (22:25)
[2018-11-24] MEDS: ACETAMINOPHEN 500 MG TAB PO SCH (22:35)
[2018-11-24] MEDS: HYDROmorphONE/DILAUDID 2 MG TAB PO PRN (23:28)
[2018-11-24 23:41] LABS: INR 2.18 (0.83-1.16); PROTIME(PATIENT) 24.3 SEC (12.0-15.0)
--- NOTE | 2018-11-25 00:27 | PDGENHP ---
History and Physical - Chief Complaint Back pain - History of Present Illness 78 yo F w/ AF, arthritis, and hypothyroid presents with back pain. The patient has been dealing with back pain and LLE radiculopathy for several weeks. She had an XR in the past and was told she had a "slipped disk". Today upon waking she noted a significant increase in her lower back pain. The pain was so severe that she has been unable to ambulate so she decided to come to the ED for evaluation. She denies red flag symptoms such as leg weakness, numbness, or loss of bowel or bladder control. In the ED an MRI was performed, which demonstrated diffuse disk bulge at L4-5 that may account for symptoms. She is being admitted for pain management and neurosurgical evaluation. Case discussed with Dr. Redd; records reviewed and summarized above. History Information - Allergies/Home Medication List Allergies/Adverse Reactions: cephalexin [Cephalexin] Allergy (Intermediate, Verified 11/24/18 18:34) metronidazole [From Flagyl] Allergy (Verified 11/24/18 18:34) oxycodone Allergy (Verified 11/24/18 18:34) Home Medications: Levothyroxine [Synthroid 100 mcg (*)] 100 mcg PO MOTUWETHFRSA@0600 12/03/15 [ Last Taken 06/12/17] Multivitamins [Multivitamin (*)] 1 each PO DAILY 12/03/15 [Last Taken 06/12/17] Warfarin Sodium [Coumadin 7.5MG (*)] 7.5 mg PO DAILY@09/27/16 [Last Taken 09:00] FLUTICASONE/SALMETEROL [ADVAIR HFA 230-21 MCG INHALER] 2 puffs IH DAILY [Last Taken 06/12/17] Simvastatin [Zocor] 20 mg PO HS 06/12/17 [Last Taken 06/11/17] I have personally reviewed and updated: family history, medical history - Past Medical History atrial fibrillation Additional medical history: Hypothyroid - Surgical History Additional surgical history: Venous ablation. Sinus surgery. L arm dory placement - Family History Positive for: CAD - Social History Smoking Status: Never smoked Review of Systems Review of Systems: ROS: 10pt was reviewed & negative except for what was stated in HPI & below Physical Exam Physical Exam: Temp Pulse Resp BP Pulse Ox 36.6 C 76 18 128/66 H 96 11/24/18 23:02 11/24/18 23:02 11/24/18 23:02 11/24/18 23:02 11/24/18 23:02 O2 (L/minute) 2 Constitutional: appears nourished, uncomfortable Eyes: PERRL, EOMI Ears, Nose, Mouth, Throat: moist mucous membranes, no oral mucosal ulcers Cardiovascular: regular rate and rhythym, systolic murmur Respiratory: no respiratory distress Gastrointestinal: normoactive bowel sounds, soft, non-tender abdomen Skin: warm, normal color Musculoskeletal: full muscle strength, no muscle tenderness Neurologic: AAOx3, CN II-XII Intact Psychiatric: interacting appropriately, not anxious Lab Data & Imaging Review 11/24/18 23:19 11/24/18 23:19 WBC 11.60 10^3/uL (3.80-9.50) H 11/24/18 23:19 RBC 4.23 10^6/uL (4.18-5.33) 11/24/18 23:19 Hgb 13.0 g/dL (12.6-16.3) 11/24/18 23:19 Hct 40.1 % (38.0-47.0) 11/24/18 23:19 MCV 94.8 fL (81.5-99.8) 11/24/18 23:19 MCH 30.7 pg (27.9-34.1) 11/24/18 23:19 MCHC 32.4 g/dL (32.4-36.7) 11/24/18 23:19 RDW 13.9 % (11.5-15.2) 11/24/18 23:19 Plt Count 244 10^3/uL (150-400) 11/24/18 23:19 PT 24.3 SEC (12.0-15.0) H 11/24/18 23:19 INR 2.18 (0.83-1.16) H 11/24/18 23:19 Sodium 136 mEq/L (135-145) 11/24/18 23:19 Potassium 4.2 mEq/L (3.5-5.2) 11/24/18 23:19 Chloride 104 mEq/L (97-110) 11/24/18 23:19 Carbon Dioxide 24 mEq/l (22-31) 11/24/18 23:19 Anion Gap 8 mEq/L (6-14) 11/24/18 23:19 BUN 14 mg/dL (7-23) 11/24/18 23:19 Creatinine 0.6 mg/dL (0.6-1.0) 11/24/18 23:19 Estimated GFR > 60 11/24/18 23:19 Glucose 131 mg/dL (70-100) H 11/24/18 23:19 Calcium 8.8 mg/dL (8.5-10.4) 11/24/18 23:19 Imaging Review: Imaging Impressions Lumbar Spine MRI 11/24/18 18:35 Impression: 1. Diffuse disk bulge or subligamentous disk herniation combines with facet hypertrophy resulting in moderate canal stenosis and bilateral lateral recess stenosis at the L4-L5 level. 2. Multilevel degenerative changes are noted. See above report for findings at specific levels Results called and discussed with Dr. Wills on 11/24/2018 21:32.. Assessment & Plan Assessment: 78 yo F w/ atrial fibrillation and hypothyroid presents with lower back pain. Plan: 1. Acute on chronic back pain - Patient with acute worsening of lower back pain today, also w/ LLE radiculopathy. MRI performed in the ED demonstrates L4-5 disk bulge, which may account for her symptoms. - Pain control with APAP madie + Dilaudid PRN - Neurosurgery consulted for evaluation, will see patient in the morning 2. Atrial fibrillation - On warfarin and metoprolol as an outpatient. - Continue warfarin for now, will need reversal if surgery recommended - Monitor daily INR - Continue metoprolol pending reconciliation 3. Hypothyroid - Continue LTX Diet - regular Code - Full Ppx - warfarin Dispo - Admit under observation status
[2018-11-25] MEDS: ACETAMINOPHEN 500 MG TAB PO SCH ×3 (08:02→21:56)
[2018-11-25 08:12] LABS: PLATELET COUNT 251 10^3/uL (150-400)
[2018-11-25] MEDS: HYDROmorphONE/DILAUDID 2 MG TAB PO PRN ×2 (08:13→23:45)
--- NOTE | 2018-11-25 08:26 | HOSPPROG ---
Hospitalist Progress Note Assessment/Plan: DIAGNOSES: * acute sciatic pain left leg with lumbar pain; limited mobility due to pain from this but at this point no loss of strength or bowel or bladder function * L4-5 disc protrusion * chronic atrial fibrillation paroxysmal on anticoagulant * chronic hypothyroidism on replacement therapy PLANS: * Will give prednisone today and tomorrow * Avoiding NSAIDs due to Coumadin * Will add Robaxin * Continue her Coumadin and thyroid replacement therapy * Will review with Neurosurgery once they have seen her x-rays * Due to ongoing problems with limited mobility, fall risk, and pain management will continued to manage here in the hospital, changed inpatient SUBJECTIVE: She has some improvement in her sciatica today and is moving little bit better No new symptoms No fever symptoms OBJECTIVE Vitals reviewed: Stable without fever Exam: alert oriented still appears uncomfortable skin warm dry color ok resps not labored lungs clear BSs heart regular iv site ok Imaging: I reviewed her lumbar spine flexion-extension images. There is a mild listhesis but I do not think this shows any abnormalities that would indicate at the moment anything beyond conservative therapy, need to review with Neurosurgery. Lab data: Stable metabolic panel On CBC slight increase in white blood cells slow likely due to steroid otherwise stable Objective: Vital Signs Temp Pulse Resp BP Pulse Ox 36.6 C 76 18 128/66 H 96 11/24/18 23:02 11/24/18 23:02 11/24/18 23:02 11/24/18 23:02 11/24/18 23:02 Laboratory Results 11/25/18 08:00 11/24/18 11/25/18 11/26/18 06:59 06:59 06:59 Intake Total 200 Output Total 0 Balance 200 PT 24.3 SEC (12.0-15.0) H 11/24/18 23:19 INR 2.18 (0.83-1.16) H 11/24/18 23:19 ICD10 Worksheet Patient Problems: Problems Problem Status Onset Low back pain Acute Radiculopathy Acute Atrial fibrillation Acute Chest pain Acute Hypothyroidism Acute Thrombophlebitis of saphenous vein Acute
[2018-11-25 08:28] LABS: INR 2.35 (0.83-1.16); PROTIME(PATIENT) 25.7 SEC (12.0-15.0)
--- NOTE | 2018-11-25 13:43 | ASMTCMCOM ---
CM Note CM Note Notes: Patient plan of care reviewed in am rounds. 78 year old female normally quite independent and plannin travel to [place] developed severe lower back pain and came to the ED. She has disc disease and pain is relieved with medications. Plan of care unclear at thsi time. Plan: Likely to dc to home independently when medically cleared for discharge. Date Signed: 11/25/2018 01:43 PM Electronically Signed By:Riana Bazzi RN
--- NOTE | 2018-11-25 14:32 | GCON ---
[f rep st] CONSULTATION NEUROSURGICAL CONSULTATION CHIEF COMPLAINT: Low back pain, left leg pain. HISTORY OF PRESENT ILLNESS: The patient is a 78-year-old female with a history of atrial fibrillatio n for which she is on Coumadin, hypothyroidism, and a nonhealing foot ulcer. She has a longstanding history of back pain over the course of several years. Several months ago, she developed low back pa in with pain in her left hip and some discomfort in her left lateral thigh. She underwent a course o f conservative care with continuum of care manager and physical therapy, with no significant improvement. On 11/24/2018, she was walking and developed a severe exacerbation of her back pain. It was difficult for her to make it to the bathroom due to the pain. She was admitted for pain control. Neurosurgica l consultation was requested. She currently complains of ongoing pain in her back with pain in her l eft hip. This is associated with some pain in her left lateral thigh. She can have paresthesias in her left lateral thigh. She does not feel that her legs are weak, and she denies any ataxia or bowel or bladder problems. Her pain is 0 to a 6 on a visual analog scale, with most of her pain in her lo w back and left hip. In the past, she has tried heat, rest, physical therapy, and continuum of care manager with no significant improvement. PAST MEDICAL HISTORY: 1. Atrial fibrillation. 2. Hypothyroidism. 3. Arthritis. 4. Reactive airway disease. MEDICATIONS PRIOR TO ADMISSION: Synthroid, multivitamin, Coumadin, metoprolol, and Advair. ALLERGIES: Keflex, Flagyl, and oxycodone. FAMILY HISTORY: The patient has no family history of spinal problems. SOCIAL HISTORY: The patient is with grown stepchildren. She denies smoking, drinking, or dr ug use. REVIEW OF SYSTEMS: Negative. PHYSICAL EXAM: GENERAL: The patient is a 78-year-old female lying in bed, in no apparent distress. HEAD, EYES, EARS, NOSE, AND THROAT: Negative for drainage. EXTREMITIES: [place], warm, and dry. RACH ROLOGICAL EXAM: The patient is awake, alert, and oriented x4. Pupils are equal, round, and reactive to light. Extraocular motions are intact. There is no evidence of facial droop. Tongue and uvula are midline. Spinal accessory muscles are intact. Her motor strength is 5/5 in her arms and legs. Her sensation is grossly intact to light touch in her arms and legs. Deep tendon reflexes are 1/4 in upper and lower extremities. There is a negative Freed with no clonus. DIAGNOSTIC STUDIES: An MRI of the lumbar spine from [facility] on 11/24/2018 sh ows preservation of the sagittal alignment. There are moderate multilevel degenerative changes. At L4-5, there is a grade 1 spondylolisthesis with moderate facet arthropathy and ligamentum hypertrophy that produces moderate left greater than right lateral recess stenosis. IMPRESSION: This is a 78-year-old female with a history of low back pain and left lower extremity ra dicular symptoms that are likely related to her L4-5 spondylolisthesis. She is neurologically stable . PLAN: All of the above issues were discussed in detail with the patient. This patient was seen and examined with Dr. Valladares, who was present. At this point in time, it was discussed with the patient that we would like to obtain plain films of her lumbar spine with flexion and extension views to eval te for any translational listhesis at L4-5. She is leaving for a trip for [place] in approximately 1 week, so we would like to try to manage her pain on a conservative basis. We would recommend p.o. or IV pain medications and antiinflammatory medications if needed. If her pain is not well controlle d, we can consider an L4-5 epidural steroid injection. However, given that she is on Coumadin and jeannine christensen has a nonhealing foot ulcer, we would be reluctant to move forward with this. If she fails an exte nsive course of conservative care, then she may benefit from an L4-5 transforaminal lumbar interbody fusion. We will obtain the new x-rays of her lumbar spine, and have her work with Physical therapy a nd Occupational therapy. They will make further treatment recommendations if her pain is not improvi ng. /[id number]/MODL
[2018-11-25] MEDS ORDERED: WARFARIN SODIUM 7.5 MG TAB PO SCH ×2 (16:00)
[2018-11-25] MEDS: SALMETEROL IH SCH (16:57)
[2018-11-25] MEDS: FLUTICASONE IH SCH (16:57)
[2018-11-25] MEDS: METOPROLOL SUCCINATE XR 25 MG TAB PO SCH (17:11)
[2018-11-25] MEDS: LEVOTHYROXINE 100 MCG TAB PO SCH (17:12)
[2018-11-25] MEDS ORDERED: predniSONE 20 MG TAB PO ONE (17:55)
[2018-11-25] MEDS: METHOCARBAMOL 750 MG TAB PO SCH (21:56)
[2018-11-25] MEDS: ATORVASTATIN CALCIUM 10 MG TAB PO SCH (21:56)
[2018-11-26] MEDS ORDERED: HYDROmorphONE/DILAUDID 1 MG/ML INJ IVP PRN (01:25)
[2018-11-26] MEDS: HYDROmorphONE/DILAUDID 2 MG TAB PO PRN ×2 (01:33→16:19)
[2018-11-26 05:14] LABS: INR 3.24 (0.83-1.16); PROTIME(PATIENT) 32.9 SEC (12.0-15.0)
[2018-11-26] MEDS ORDERED: DIAZEPAM 5 MG TAB PO ONE (06:05)
[2018-11-26] MEDS: HYDROmorphONE/DILAUDID 1 MG/ML INJ IVP PRN ×3 (06:20→23:28)
[2018-11-26] MEDS: ACETAMINOPHEN 500 MG TAB PO SCH ×3 (06:20→22:11)
[2018-11-26] MEDS: LEVOTHYROXINE 100 MCG TAB PO SCH (06:20)
--- NOTE | 2018-11-26 08:03 | SOAPPROG ---
SOAP Progress Note Assessment/Plan: Assessment: 78 yo F with low back pain and left hip/lateral thigh pain likely from L4/5 spondylolisthesis Plan: neuro: pain was well controlled yesterday but patient had bad night. discussed pain control options of medrol dose pack versus epidural injection with patient INR 3.24 this am, will discuss with IR, they may be able to do caudal epidural injection without reversing INR, if not then we would likely lean towards po steroids will add neurontin 200mg po tid continue PT/OT ok to discharge if pain is controlled, follow up with Dr Valladares ([phone]) in 2 weeks please call with neuro changes 11/26/18 07:59 11/26/18 08:03 Subjective: continued back pain, left hip pain, pain was bad overnight. No weakness, no Bowel/bladder changes Objective: Vital Signs Temp Pulse Resp BP Pulse Ox 36.5 C 89 16 130/63 H 93 11/26/18 04:28 11/26/18 04:28 11/26/18 04:28 11/26/18 04:28 11/26/18 04:28 Laboratory Results 11/25/18 08:00 11/25/18 08:00 11/25/18 11/26/18 11/27/18 05:59 05:59 05:59 Intake Total 200 3200 Output Total 0 Balance 200 3200 PT 32.9 SEC (12.0-15.0) H 11/26/18 04:46 INR 3.24 (0.83-1.16) H 11/26/18 04:46 AAOx4, +FC PERRL, EOMI, no facial droop 5/5 + light touch ICD10 Worksheet Patient Problems: Problems Problem Status Onset Low back pain Acute Radiculopathy Acute Atrial fibrillation Acute Chest pain Acute Hypothyroidism Acute Thrombophlebitis of saphenous vein Acute
[2018-11-26] MEDS: METOPROLOL SUCCINATE XR 25 MG TAB PO SCH (09:45)
[2018-11-26] MEDS: METHOCARBAMOL 750 MG TAB PO SCH ×3 (09:47→22:11)
[2018-11-26] MEDS: MULTIVITAMINS 1 EACH TAB PO SCH (09:47)
[2018-11-26] MEDS: SALMETEROL IH SCH (10:32)
[2018-11-26] MEDS: FLUTICASONE IH SCH (10:32)
[2018-11-26] MEDS ORDERED: PHYTONADIONE 10 MG in NS 50 ML IV ONE (10:45)
[2018-11-26] MEDS: GABAPENTIN 300 MG CAP PO SCH ×2 (11:40→20:50)
[2018-11-26] MEDS: predniSONE 20 MG TAB PO SCH (11:40)
--- NOTE | 2018-11-26 12:27 | ASMTCMCOM ---
CM Note CM Note Notes: Patient plan of care reviewed in am rounds. Medications adjusted as patient having back pain r/t L 4-5 disc protrusion. May require interventional radiology for epidural injection. Patient normally independent. No needs identified at this time. Plan: Likey to dc home after medically cleared. Date Signed: 11/26/2018 12:15 PM Electronically Signed By:Riana Bazzi RN
--- NOTE | 2018-11-26 12:35 | PDMN ---
Medical Necessity Medical necessity: Change to inpt as of 11/25/18 @ 18:11, pt meets inpt criteria per MD order and MCG M-63, back pain. 78 y/o admitted w/worsening lower back pain and LLE radiculopathy, MRI showed L4-5 disk bulge. Upgraded to inpt for ongoing acute sciatic pain L leg and lumbar pain w/limited mobility due to pain , still needing IV Dilaudid in addition to PO pain meds, adding steroid, neurosurg consult. Est LOS>2MN for ongoing eval/management of above.
--- NOTE | 2018-11-26 15:04 | HOSPPROG ---
Hospitalist Progress Note Assessment/Plan: DIAGNOSES: * acute sciatic pain left leg with lumbar pain; limited mobility due to pain from this but at this point no loss of strength or bowel or bladder function * L4-5 disc protrusion * chronic atrial fibrillation paroxysmal on anticoagulant * chronic hypothyroidism on replacement therapy PLANS: * Continue prednisone * I added gabapentin today * Continue analgesic and muscle relaxers * Avoiding NSAIDs due to Coumadin and history of ulcers * Currently holding her Coumadin and giving vitamin K with a high INR and a likelihood that she may need epidural injection * I reviewed with Neurosurgery team today in detail. At this point the patient has ongoing severe pain and is quite debilitated with severely limited mobility. She is a reasonable candidate to do an epidural steroid injection but we would need to reverse her Coumadin for that. Also Dr. Fry feels that her L4-5 mobility may require that she eventually has a fusion to manage her symptoms. He would like to try conservative therapy before committing to this * Due to ongoing problems with limited mobility, fall risk, and pain management will continued to manage here in the hospital Seen by me today on hospitals rounds as well as multidisciplinary rounds I reviewed with Mahamed Bartholomew and Dr. Fry of Neurosurgery today SUBJECTIVE: She had a terrible night with much increased lumbar back pain, barely able to move to get from her bed to commode with assistance. Her sciatica in the left leg is a bit better today but still present. No new weakness or bowel bladder function issues OBJECTIVE Vitals reviewed: Stable without fever Exam: alert oriented appears quite uncomfortable today skin warm dry color ok resps not labored lungs clear BSs heart regular Abdomen unremarkable No weakness iv site ok Imaging: I reviewed her lumbar spine flexion-extension images. There is a mild listhesis but I do not think this shows any abnormalities that would indicate at the moment anything beyond conservative therapy, need to review with Neurosurgery. Lab data: Stable metabolic panel On CBC slight increase in white blood cells slow likely due to steroid otherwise stable Objective: Vital Signs Temp Pulse Resp BP Pulse Ox 36.2 C 74 16 122/71 H 95 11/26/18 12:32 11/26/18 12:32 11/26/18 12:32 11/26/18 12:32 11/26/18 12:32 11/25/18 11/26/18 11/27/18 06:59 06:59 06:59 Intake Total 1999 Balance 1999 PT 32.9 SEC (12.0-15.0) H 11/26/18 04:46 INR 3.24 (0.83-1.16) H 11/26/18 04:46 - Time Spent With Patient Time Spent with Patient: greater than 35 minutes Time Spent with Patient: Greater than 35 minutes spent on this patients care, greater than 50% of time spent counseling, educating, and coordinating care regarding the above mentioned plan. ICD10 Worksheet Patient Problems: Problems Problem Status Onset Low back pain Acute Radiculopathy Acute Atrial fibrillation Acute Chest pain Acute Hypothyroidism Acute Thrombophlebitis of saphenous vein Acute
[2018-11-26] MEDS ORDERED: WARFARIN SODIUM 7.5 MG TAB PO SCH ×2 (16:00)
[2018-11-26] MEDS: ATORVASTATIN CALCIUM 10 MG TAB PO SCH (20:50)
[2018-11-27] MEDS: LEVOTHYROXINE 100 MCG TAB PO SCH (05:01)
[2018-11-27] MEDS: ACETAMINOPHEN 500 MG TAB PO SCH ×3 (05:01→20:56)
[2018-11-27] MEDS: HYDROmorphONE/DILAUDID 2 MG TAB PO PRN ×3 (05:02→14:42)
[2018-11-27 06:11] LABS: INR 1.2 (0.83-1.16); PROTIME(PATIENT) 14.7 SEC (12.0-15.0)
--- NOTE | 2018-11-27 07:23 | SOAPPROG ---
ANA MARIA Progress Note Assessment/Plan: Assessment: 78 yo F with low back pain and left hip/lateral thigh pain likely from L4/5 spondylolisthesis Plan: neuro: continued back pain with pain in her left hip. patient requiring 2-4 mg of po dilaudid, will order L4/5 epidural injection for today since INR is normalized NPO until injection then regular diet INR 1.2 this am continue PT/OT ok to discharge if pain is controlled, follow up with Dr Valladares ([phone]) in 2 weeks please call with neuro changes 11/26/18 07:59 11/26/18 08:03 11/27/18 07:20 Subjective: continued back pain and left hip pain Objective: Vital Signs Temp Pulse Resp BP Pulse Ox 36.6 C 72 18 116/61 94 11/27/18 04:42 11/27/18 04:42 11/27/18 04:42 11/27/18 04:42 11/27/18 04:42 11/26/18 11/27/18 11/28/18 05:59 05:59 05:59 Intake Total 2000 1200 Balance 2000 1200 PT 14.7 SEC (12.0-15.0) 11/27/18 05:24 INR 1.20 (0.83-1.16) H 11/27/18 05:24 AAOx4, +FC PERRL, EOMI, no facial droop 5/5 + light touch ICD10 Worksheet Patient Problems: Problems Problem Status Onset Low back pain Acute Radiculopathy Acute Atrial fibrillation Acute Chest pain Acute Hypothyroidism Acute Thrombophlebitis of saphenous vein Acute
[2018-11-27] MEDS: GABAPENTIN 300 MG CAP PO SCH ×2 (09:00→20:56)
[2018-11-27] MEDS: METOPROLOL SUCCINATE XR 25 MG TAB PO SCH (09:01)
[2018-11-27] MEDS: METHOCARBAMOL 750 MG TAB PO SCH ×3 (09:01→20:56)
[2018-11-27] MEDS: predniSONE 20 MG TAB PO SCH (09:01)
[2018-11-27] MEDS: MULTIVITAMINS 1 EACH TAB PO SCH (09:01)
[2018-11-27] MEDS: FLUTICASONE IH SCH (10:07)
[2018-11-27] MEDS: SALMETEROL IH SCH (10:07)
[2018-11-27] MEDS ORDERED: IOPAMIDOL (ISOVUE-M 300) 15 ML VIAL ONE (10:33)
[2018-11-27] MEDS ORDERED: TRIAMCINOLONE ACETONIDE 200 MG/5 ML MDV IM ONE (10:34)
--- NOTE | 2018-11-27 16:44 | ASMTCMCOM ---
CM Note CM Note Notes: Patient had a lumbar ARCHIE today and is feeling better although still not clinically ready for d/c. She is using a cane to ambulate. MD feels that she will be ready for discharge tomorrow. Per UR department, this hospital is out of network for patient. MD notified and still advocates for her admission for one more night for continued stabilization. Anticipate d.c. home indepdendent tomorrow, 11/28 Date Signed: 11/27/2018 04:43 PM Electronically Signed By:Hannah Lua RN
[2018-11-27] MEDS: ATORVASTATIN CALCIUM 10 MG TAB PO SCH (20:57)
--- NOTE | 2018-11-27 22:04 | HOSPPROG ---
Hospitalist Progress Note Assessment/Plan: DIAGNOSES: * acute sciatic pain left leg with lumbar pain; limited mobility due to pain from this but at this point no loss of strength or bowel or bladder function * L4-5 disc protrusion * status post epidural steroid injection 11/27 today * chronic atrial fibrillation paroxysmal on anticoagulant * chronic hypothyroidism on replacement therapy The patient has notable improvement in her pain and mobility today but is still using a walker and somewhat unsteady on her feet requiring an pizza hut assistant be with her. I believe she will be likely improved enough to go home tomorrow but she and I both did not feel quite safe with her going home today PLANS: * Continue prednisone * Continue gabapentin current dose * Continue analgesic and muscle relaxers p.r.n. * Avoiding NSAIDs due to Coumadin and history of ulcers * Will resume her Coumadin tomorrow * Probable discharge to home tomorrow SUBJECTIVE: The patient had epidural injection this morning which was uncomplicated and she tolerated it well Since then she has been able to get up and ambulate with a walker though still with quite a bit of pain doing that, a bit unsteady on her feet and worried that she might fall be changed from yesterday overall. Sciatica pain legs remains mild, the main to severe pain is still in the lumbar area No bowel or bladder dysfunction symptoms OBJECTIVE Vitals reviewed: Stable without fever Exam: alert oriented appears notably more comfortable today skin warm dry color ok resps not labored lungs clear BSs heart regular No weakness in legs as best can be assessed with her pain iv site ok Objective: Vital Signs Temp Pulse Resp BP Pulse Ox 36.6 C 86 16 131/63 H 92 11/27/18 20:49 11/27/18 20:49 11/27/18 20:49 11/27/18 20:49 11/27/18 20:49 11/26/18 11/27/18 11/28/18 06:59 06:59 06:59 Intake Total 1999 1200 300 Balance 1999 1200 300 PT 14.7 SEC (12.0-15.0) 11/27/18 05:24 INR 1.20 (0.83-1.16) H 11/27/18 05:24 ICD10 Worksheet Patient Problems: Problems Problem Status Onset Low back pain Acute Radiculopathy Acute Atrial fibrillation Acute Chest pain Acute Hypothyroidism Acute Thrombophlebitis of saphenous vein Acute
[2018-11-28 05:33] LABS: INR 1.08 (0.83-1.16); PROTIME(PATIENT) 14.2 SEC (12.0-15.0)
[2018-11-28] MEDS: LEVOTHYROXINE 100 MCG TAB PO SCH (05:52)
[2018-11-28] MEDS: ACETAMINOPHEN 500 MG TAB PO SCH ×2 (05:52→13:08)
[2018-11-28] MEDS: HYDROmorphONE/DILAUDID 2 MG TAB PO PRN ×2 (05:59→17:23)
[2018-11-28] MEDS: METOPROLOL SUCCINATE XR 25 MG TAB PO SCH (08:53)
[2018-11-28] MEDS: predniSONE 20 MG TAB PO SCH (08:53)
[2018-11-28] MEDS: MULTIVITAMINS 1 EACH TAB PO SCH (08:54)
[2018-11-28] MEDS: METHOCARBAMOL 750 MG TAB PO SCH ×2 (08:54→15:56)
[2018-11-28] MEDS: GABAPENTIN 300 MG CAP PO SCH (08:54)
[2018-11-28] MEDS: FLUTICASONE IH SCH (09:11)
[2018-11-28] MEDS: SALMETEROL IH SCH (09:11)
[2018-11-28 11:13] VITALS: BP 118/61
[2018-11-28] MEDS ORDERED: LACTULOSE 20 GM/30 ML UDCUP PO PRN (11:47)
[2018-11-28] MEDS ORDERED: MAGNESIUM HYDROXIDE 30 ML UDCUP PO PRN (11:47)
[2018-11-28] MEDS ORDERED: BISACODYL 10 MG SUPP PR PRN (11:47)
[2018-11-28] MEDS ORDERED: POLYETHYLENE GLYCOL 3350 17 GM PKT PO PRN (11:47)
--- NOTE | 2018-11-28 15:16 | PDDCSUM ---
Discharge Summary Discharge Summary: DISCHARGE DIAGNOSES: -acute sciatica left leg -Severe lower back pain -impaired mobility due to above -atrial fibrillation, chronic paroxysmal on anticoagulant CONSULTANTS: Dr. Valladares of Neurosurgery PROCEDURES: MRI of lumbar spine Epidural steroid injection of lumbar spine at L4-5 HOSPITAL COURSE SUMMARY: This patient who does not have any history of spine injury surgery came in with severe left-sided sciatica and lumbar pain, unable to move. There is quite a bit of neuropathic pain into the left leg and quite a bit of spasm in the back. There were no findings of sensory loss or weakness and there were no bowel or bladder symptoms. She was however unable to roll over in bed and get up from lying supine at all upon arrival. She was treated in the ER with measures to attempt to get back pain control but she was unable to achieve adequate pain control in the ER. An MRI was done showing L4-5 disc protrusion consistent with her left-sided sciatica. Flexion- extension x-rays were done showing some movement at L4-5 that was concerning. The patient was seen by the Neurosurgery team and it was felt that she could be treated conservatively with oral medications, therapies, and an epidural steroid injection, but if he did not resolve with these she might need surgery. However surgery would likely involve effusion given the movement seen on her x -rays. There was no clinical or radiologic concern for fracture tumor or infection. At this point the patient has been treated with prednisone, muscle relaxer, gabapentin and has had an epidural steroid injection. We have not use nonsteroidal anti-inflammatories because she is on Coumadin for AFib. She also has a history of recurrent stomach ulcers. With these measures and with physical therapy and rest she has improved to point where she can get up and move around reasonably well with a walker and she feels comfortable going home. She is felt stable for discharge to home. She will continue on 2 more days of oral steroid, continue on the gabapentin and she is given some p.r.n. Dilaudid analgesics. Here in the hospital we did stop her Coumadin and reverse it to do the epidural steroid injection as her INR was greater than 3, but she is to resume her Coumadin at this time. PENDING TEST RESULTS: None MEDICATION CHANGES: Addition of: * gabapentin 300 mg twice daily * Robaxin 750 mg three times daily * Dilaudid 2-4 mg every 6 hr as needed, 1 week supply * prednisone 20 mg daily for 2 more days * laxative and stool softener as needed FOLLOW-UP PLAN: She will see Dr. Nagy in Neurosurgery Clinic in 1-2 weeks Greater than 35 minutes bedside and care coordination time today
--- NOTE | 2018-11-28 15:56 | ASMTCMCOM ---
CM Note CM Note Notes: CM met with patient to give [employer] and DME information for a walker. The patient is eager to leave today, states understanding she will need to transfer to a [facility] Facility today as [facility] is out of network. A friend of the patient was in the room and offered to go to the [facility] to pick up worker a loan walker. Patient will discharge home with . Patient has contact information for Dr. Hunter Burgess to follow up. CM to follow. D/C Plan: home independent. Date Signed: 11/28/2018 03:55 PM Electronically Signed By:Anny Perez
[2018-11-28] MEDS ORDERED: SENNOSIDES/DOCUSATE SODIUM TAB PO SCH (21:00)
[2018-11-30] MEDS ORDERED: LEVOTHYROXINE 50 MCG TAB PO SCH (15:32)
== END 2018-11-28 19:10 | disposition home or self-care (01) | DRG 552 ==
LOC: EDUNIT# → F1N 22:53 → OBSVTOIN 11-25 18:11
PROVIDERS: ADMIT Student in an Organized Health Care Education/Training Program; ATTEND Internal Medicine
DX: M51.16 Intervertebral disc disorders with radiculopathy, lumbar region (principal); M51.26 Other intervertebral disc displacement, lumbar region; M43.16 Spondylolisthesis, lumbar region; I48.0 Paroxysmal atrial fibrillation; E03.9 Hypothyroidism, unspecified; J45.909 Unspecified asthma, uncomplicated; Z79.01 Long term (current) use of anticoagulants
CPT/HCPCS: 96374; G0378; J1100; J1170; J3301; J3360; J3430; J7512; Q9967

== ENCOUNTER 2019-01-01 15:48 | Observation (INO) | payer OTHER ==
--- NOTE | 2019-01-01 16:05 | EDPHY ---
HPI/HX/ROS/PE/MDM Narrative: CHIEF COMPLAINT: Chest pain. HPI: The patient is a 78-year-old female with a history of atrial fibrillation. She reports feeling poorly over the last 2 weeks. She was seen by her primary physician last week with negative lab test. Today she was running errands and when she got out of her car she felt very flushed and developed some left-sided chest pain and mild shortness of breath. Her chest pain largely resolved but now she complains of some left upper abdominal discomfort and an indigestion type feeling. REVIEW OF SYSTEMS: Aside from elements discussed in the HPI, a comprehensive 10-point review of systems was reviewed and is negative. PMH: Atrial fibrillation, history of admission to the hospital for chest pain in 2017 with negative workup. SOCIAL HISTORY: Denies alcohol or drug abuse. PHYSICAL EXAM: General:Patient is alert, in no acute distress. ENT:Eyes are normal to inspection. ENT inspection normal. Neck: Normal inspection. Full range of motion. Respiratory:No respiratory distress. Breath sounds normal bilaterally. Cardiovascular: Regular rate and rhythm. Strong peripheral pulses. Normal cap refill. Abdomen:The abdomen is nontender to palpation. There are no peritoneal signs. There are normal bowel sounds. Back: Normal to inspection. No tenderness to palpation. Skin: Normal color. No rash. Warm and dry. Extremities: Bilateral compression stockings are noted. Neuro: Oriented x3. Normal motor function. Normal sensory function. ED Course: EKG was ordered and interpreted by myself. Please see [facility] system for official reading. No signs of ACS. Patient noted to be 86%RA after ambulation. She states she wears oxygen at night and that this is not unusual. MDM: This patient presents with an episode of chest pain in the setting of a week of malaise. Her ECG and troponin are negative. Given age and risk factors, I offered her admission for further evaluation and she would like to pursue this. I see no signs of ACS, TAD, Ptx,PNA. - Data Points Imaging Results: Imaging Impressions Chest X-Ray 01/01/19 15:59 Impression: 1. Severe compression deformity of vertebral body at the thoracolumbar junction , new from previous exam. 2. No acute cardiopulmonary process identified. Laboratory Results: Laboratory Results 01/01/19 16:20 01/01/19 16:20 04/01/1601/01/19 01/01/19 17:50 16:28 16:20 WBC RBC Hgb Hct MCV MCH MCHC RDW Plt Count MPV Neut % (Auto) Lymph % (Auto) Wells % (Auto) Eos % (Auto) Baso % (Auto) Nucleat RBC Rel Count Absolute Neuts (auto) Absolute Lymphs (auto) Absolute Monos (auto) Absolute Eos (auto) Absolute Basos (auto) Absolute Nucleated RBC Immature Gran % Immature Gran # PT INR APTT Sodium 139 mEq/L mEq/L (135-145) Potassium 4.0 mEq/L mEq/L (3.5-5.2) Chloride 106 mEq/L mEq/L (97-110) Carbon Dioxide 25 mEq/l mEq/l (22-31) Anion Gap 8 mEq/L mEq/L (6-14) BUN 16 mg/dL mg/dL (7-23) Creatinine 0.6 mg/dL mg/dL (0.6-1.0) Estimated GFR > 60 Glucose 104 mg/dL H mg/dL (70-100) Calcium 9.0 mg/dL mg/dL (8.5-10.4) POC Troponin I 0.00 ng/mL ng/mL (0.00-0.08) TSH 2.080 uIU/mL uIU/mL (0.465-4.680) Urine Color YELLOW Urine Appearance HAZY Urine pH 5.0 (5.0-7.5) Ur Specific [place] 1.019 (1.002-1.030) Urine Protein NEGATIVE (NEGATIVE) Urine Ketones NEGATIVE (NEGATIVE) Urine Blood NEGATIVE (NEGATIVE) Urine Nitrate NEGATIVE (NEGATIVE) Urine Bilirubin NEGATIVE (NEGATIVE) Urine Urobilinogen NEGATIVE EU EU (0.2-1.0) Ur Leukocyte Esterase TRACE H (NEGATIVE) Urine RBC Pending Urine WBC Pending Ur Epithelial Cells Pending Urine Glucose NEGATIVE (NEGATIVE) 01/01/19 01/01/19 16:20 16:20 WBC 9.82 10^3/uL H 10^3/uL (3.80-9.50) RBC 4.03 10^6/uL L 10^6/uL (4.18-5.33) Hgb 12.7 g/dL g/dL (12.6-16.3) Hct 39.1 % % (38.0-47.0) MCV 97.0 fL fL (81.5-99.8) MCH 31.5 pg pg (27.9-34.1) MCHC 32.5 g/dL g/dL (32.4-36.7) RDW 14.3 % % (11.5-15.2) Plt Count 262 10^3/uL 10^3/uL (150-400) MPV 9.2 fL fL (8.7-11.7) Neut % (Auto) 76.6 % H % (39.3-74.2) Lymph % (Auto) 13.6 % L % (15.0-45.0) Wells % (Auto) 8.2 % % (4.5-13.0) Eos % (Auto) 0.7 % % (0.6-7.6) Baso % (Auto) 0.2 % L % (0.3-1.7) Nucleat RBC Rel Count 0.0 % % (0.0-0.2) Absolute Neuts (auto) 7.51 10^3/uL H 10^3/uL (1.70-6.50) Absolute Lymphs (auto) 1.34 10^3/uL 10^3/uL (1.00-3.00) Absolute Monos (auto) 0.81 10^3/uL H 10^3/uL (0.30-0.80) Absolute Eos (auto) 0.07 10^3/uL 10^3/uL (0.03-0.40) Absolute Basos (auto) 0.02 10^3/uL 10^3/uL (0.02-0.10) Absolute Nucleated RBC 0.00 10^3/uL 10^3/uL (0-0.01) Immature Gran % 0.7 % % (0.0-1.1) Immature Gran # 0.07 10^3/uL 10^3/uL (0.00-0.10) PT 26.9 SEC H SEC (12.0-15.0) INR 2.65 H (0.83-1.16) APTT 32.5 SEC SEC (23.0-38.0) Sodium Potassium Chloride Carbon Dioxide Anion Gap BUN Creatinine Estimated GFR Glucose Calcium POC Troponin I TSH Urine Color Urine Appearance Urine pH Ur Specific [place] Urine Protein Urine Ketones Urine Blood Urine Nitrate Urine Bilirubin Urine Urobilinogen Ur Leukocyte Esterase Urine RBC Urine WBC Ur Epithelial Cells Urine Glucose Point of Care Test Results: Chemistry 01/01/19 16:28 POC Troponin I 0.00 ng/mL ng/mL (0.00-0.08) General Time Seen by Provider: 01/01/19 15:57 Initial Vital Signs: Initial Vital Signs Temperature (C) 36.7 C 01/01/19 15:52 Heart Rate 93 01/01/19 15:52 Respiratory Rate 18 01/01/19 15:52 Blood Pressure 139/98 H 01/01/19 15:52 O2 Sat (%) 94 01/01/19 15:52 O2 Delivery Mode Nasal Cannula O2 (L/minute) 2 Allergies/Adverse Reactions: cephalexin [Cephalexin] Allergy (Intermediate, Verified 01/01/19 15:51) Hives metronidazole [From Flagyl] Allergy (Verified 01/01/19 15:51) Vomiting oxycodone Allergy (Verified 01/01/19 15:51) Vomiting Home Medications: Medication Instructions Recorded Levothyroxine [Synthroid 100 mcg 100 mcg PO MOTUWETHFRSA@0600 12/03/15 (*)] Multivitamins [Multivitamin (*)] 1 each PO DAILY 12/03/15 Metoprolol Succinate Xr [Toprol Xl 25 mg PO DAILY #30 tab 12/04/15 25 mg (*)] Warfarin Sodium [Coumadin 7.5MG 7.5 mg PO SUTUTHSA 09/27/16 (*)] FLUTICASONE/SALMETEROL [ADVAIR HFA 2 puffs IH DAILY 06/12/17 230-21 MCG INHALER] Simvastatin [Zocor] 20 mg PO HS 06/12/17 Acetaminophen [Tylenol 325mg (*)] 650 mg PO Q6 PRN 11/25/18 Levothyroxine [Synthroid 50 mcg 50 mcg PO COLMENARES 11/25/18 (*)] Warfarin Sodium [Coumadin 7.5MG 3.75 mg PO MWF 11/25/18 (*)] Gabapentin [Neurontin 300 MG (*)] 300 mg PO BID #60 cap 11/28/18 HYDROmorphone HCL [Dilaudid 2 mg 2 - 4 mg PO Q6HRS PRN #56 tab 11/28/18 (*)] Methocarbamol [Robaxin 750 mg (*)] 750 mg PO TID #90 tab 11/28/18 Polyethylene Glycol 3350 [Miralax 17 gm PO DAILY PRN #30 pkt 11/28/18 17 gm (*)] Sennosides/Docusate Sodium 1 - 2 tab PO BID tab 11/28/18 [Senokot-S] Departure - Departure Disposition: [facility] Acute Clinical Impression: Chest pain, Atrial fibrillation Condition: Fair Referrals: CELESTINO BAZAN [Primary Care Provider] - As per Instructions
[2019-01-01 16:31] LABS: PLATELET COUNT 262 10^3/uL (150-400)
[2019-01-01 16:40] LABS: INR 2.65 (0.83-1.16); PROTIME(PATIENT) 26.9 SEC (12.0-15.0)
[2019-01-01] MEDS ORDERED: ONDANSETRON DISINTEGRATING 4 MG TAB PO PRN (18:44)
[2019-01-01] MEDS ORDERED: ONDANSETRON 4 MG/2 ML VIAL IVP PRN (18:44)
[2019-01-01] MEDS ORDERED: MAG HYDROX/AL HYDROX/SIMETH 30 ML UDCUP PO ONE (18:50)
--- NOTE | 2019-01-01 18:57 | PDGENHP ---
<Annabel Odell - Last Filed: 01/01/19 19:28> History and Physical - Chief Complaint Chest pain - History of Present Illness This is a 78 y/o female w/hx of atrial fibrillation on warfarin, hypothyroidism , and hyperlipidemia presenting w/acute chest pain, located underneath her left nipple which has since resolved. Reports for the last 2 weeks, she felt "off" but unable to detail her definition of "off" was and she followed up w/her PCP who ran labwork and imaging which all was negative. She felt better for a short period of time after that however today while running errands, she felt her face become flushed and hot; subsequently experiencing dull left sided chest pain that did not radiate. Chest pain has resolved but she continues to experience feelings of indigestion. She also reports mild SOB. Denies palpitations, nausea, vomiting, YWNN, vision changes, urinary or bowel changes. She is being admitted for further work-up, treatment and monitoring. History Information - Allergies/Home Medication List Allergies/Adverse Reactions: cephalexin [Cephalexin] Allergy (Intermediate, Verified 01/01/19 15:51) Hives metronidazole [From Flagyl] Allergy (Verified 01/01/19 15:51) Vomiting oxycodone Allergy (Verified 01/01/19 15:51) Vomiting Home Medications: Levothyroxine [Synthroid 100 mcg (*)] 100 mcg PO MOTUWETHFRSA@0600 12/03/15 [ Last Taken 01/01/19] Multivitamins [Multivitamin (*)] 1 each PO DAILY 12/03/15 [Last Taken 11/24/18] Warfarin Sodium [Coumadin 7.5MG (*)] 7.5 mg PO SUTUTHSA 09/27/16 [Last Taken 01/16] FLUTICASONE/SALMETEROL [ADVAIR HFA 230-21 MCG INHALER] 2 puffs IH DAILY [Last Taken 01/01/19] Simvastatin [Zocor] 20 mg PO HS 06/12/17 [Last Taken 12/31/18] Levothyroxine [Synthroid 50 mcg (*)] 50 mcg PO COLMENARES 11/25/18 [Last Taken 12/28/18] Warfarin Sodium [Coumadin 7.5MG (*)] 3.75 mg PO MWF 11/25/18 [Last Taken ] I have personally reviewed and updated: family history, medical history, social history, surgical history - Past Medical History atrial fibrillation (PAF) Additional medical history: Hypothyroid. WILBUR on CPA. Nocturnal hypoxemia. HLD. Pulm HTN. MVP - Surgical History Additional surgical history: Venous ablation. Sinus surgery. L arm dory placement - Family History Positive for: CAD - Social History Smoking Status: Never smoked Alcohol Use: None Drug Use: None Additional social history: . Lives in [place]. Review of Systems Review of Systems: ROS: 10pt was reviewed & negative except for what was stated in HPI & below Physical Exam Physical Exam: Lab data and imaging were reviewed. UA: negative Troponin: 0.00 CXR: compared to 2017, severe compression deformity of vertebral body at the thoracolumbar junction, new from previous exam. No acute cardiopulmonary process identified. EKG: SR Temp Pulse Resp BP Pulse Ox 36.7 C 82 18 133/69 H 96 01/01/19 15:52 01/01/19 17:55 01/01/19 17:55 01/01/19 17:55 01/01/19 17:56 Constitutional: no apparent distress, appears nourished, not in pain Eyes: PERRL, anicteric sclera, EOMI Ears, Nose, Mouth, Throat: moist mucous membranes, hearing normal, ears appear normal, no oral mucosal ulcers Cardiovascular: regular rate and rhythym, systolic murmur Peripheral Pulses: 2+: dorsalis-pedis (R), dorsalis-pedis (L) Respiratory: no respiratory distress, no rales or rhonchi, clear to auscultation Gastrointestinal: normoactive bowel sounds, soft, non-tender abdomen, no palpable masses Genitourinary: no bladder fullness, no bladder tenderness Skin: warm, normal color, no rashes or abrasions, no fluctuance, no induration, No mottled Musculoskeletal: full muscle strength, no muscle tenderness, normal joint ROM, no joint effusions Neurologic: AAOx3, sensation intact bilaterally, CN II-XII Intact Psychiatric: interacting appropriately, not anxious, not encephalopathic, thought process linear Lymph, Heme, Immunologic: no cervical LAD, no supraclavicular LAD Lab Data & Imaging Review 01/01/19 16:20 01/01/19 16:20 WBC 9.82 10^3/uL (3.80-9.50) H 01/01/19 16:20 RBC 4.03 10^6/uL (4.18-5.33) L 01/01/19 16:20 Hgb 12.7 g/dL (12.6-16.3) 01/01/19 16:20 Hct 39.1 % (38.0-47.0) 01/01/19 16:20 MCV 97.0 fL (81.5-99.8) 01/01/19 16:20 MCH 31.5 pg (27.9-34.1) 01/01/19 16:20 MCHC 32.5 g/dL (32.4-36.7) 01/01/19 16:20 RDW 14.3 % (11.5-15.2) 01/01/19 16:20 Plt Count 262 10^3/uL (150-400) 01/01/19 16:20 MPV 9.2 fL (8.7-11.7) 01/01/19 16:20 Neut % (Auto) 76.6 % (39.3-74.2) H 01/01/19 16:20 Lymph % (Auto) 13.6 % (15.0-45.0) L 01/01/19 16:20 [place] % (Auto) 8.2 % (4.5-13.0) 01/01/19 16:20 Eos % (Auto) 0.7 % (0.6-7.6) 01/01/19 16:20 Baso % (Auto) 0.2 % (0.3-1.7) L 01/01/19 16:20 Nucleat RBC Rel Count 0.0 % (0.0-0.2) 01/01/19 16:20 Absolute Neuts (auto) 7.51 10^3/uL (1.70-6.50) H 01/01/19 16:20 Absolute Lymphs (auto) 1.34 10^3/uL (1.00-3.00) 01/01/19 16:20 Absolute Monos (auto) 0.81 10^3/uL (0.30-0.80) H 01/01/19 16:20 Absolute Eos (auto) 0.07 10^3/uL (0.03-0.40) 01/01/19 16:20 Absolute Basos (auto) 0.02 10^3/uL (0.02-0.10) 01/01/19 16:20 Absolute Nucleated RBC 0.00 10^3/uL (0-0.01) 01/01/19 16:20 Immature Gran % 0.7 % (0.0-1.1) 01/01/19 16:20 Immature Gran # 0.07 10^3/uL (0.00-0.10) 01/01/19 16:20 PT 26.9 SEC (12.0-15.0) H 01/01/19 16:20 INR 2.65 (0.83-1.16) H 01/01/19 16:20 APTT 32.5 SEC (23.0-38.0) 01/01/19 16:20 Sodium 139 mEq/L (135-145) 01/01/19 16:20 Potassium 4.0 mEq/L (3.5-5.2) 01/01/19 16:20 Chloride 106 mEq/L (97-110) 01/01/19 16:20 Carbon Dioxide 25 mEq/l (22-31) 01/01/19 16:20 Anion Gap 8 mEq/L (6-14) 01/01/19 16:20 BUN 16 mg/dL (7-23) 01/01/19 16:20 Creatinine 0.6 mg/dL (0.6-1.0) 01/01/19 16:20 Estimated GFR > 60 01/01/19 16:20 Glucose 104 mg/dL (70-100) H 01/01/19 16:20 Calcium 9.0 mg/dL (8.5-10.4) 01/01/19 16:20 POC Troponin I 0.00 ng/mL (0.00-0.08) 01/01/19 16:28 TSH 2.080 uIU/mL (0.465-4.680) 01/01/19 16:20 Urine Color YELLOW 01/01/19 17:50 Urine Appearance HAZY 01/01/19 17:50 Urine pH 5.0 (5.0-7.5) 01/01/19 17:50 Ur Specific Worth 1.019 (1.002-1.030) 01/01/19 17:50 Urine Protein NEGATIVE (NEGATIVE) 01/01/19 17:50 Urine Ketones NEGATIVE (NEGATIVE) 01/01/19 17:50 Urine Blood NEGATIVE (NEGATIVE) 01/01/19 17:50 Urine Nitrate NEGATIVE (NEGATIVE) 01/01/19 17:50 Urine Bilirubin NEGATIVE (NEGATIVE) 01/01/19 17:50 Urine Urobilinogen NEGATIVE EU (0.2-1.0) 01/01/19 17:50 Ur Leukocyte Esterase TRACE (NEGATIVE) H 01/01/19 17:50 Urine RBC 1-3 /hpf (0-3) 01/01/19 17:50 Urine WBC 5-10 /hpf (0-3) H 01/01/19 17:50 Ur Epithelial Cells NONE SEEN /lpf (NONE-1+) 01/01/19 17:50 Urine Mucus TRACE /lpf (NONE-1+) 01/01/19 17:50 Urine Glucose NEGATIVE (NEGATIVE) 01/01/19 17:50 Assessment & Plan Plan: 78 y/o female w/hx of atrial fibrillation and on AC presents w/vague symptoms of indigestion and resolved left sided inferior nipple chest pain w/associated symptoms of mild shortness of breath. She is hemodynamically stable w/vitals of : 133/69 BP, 82 HR, 18 Resp, 36.7c, 86%RA --> 96%2LNC #Chest pain: Dr. Viik Milan is her christmas bell ringer. Pt has known MVP w/ 3+ , moderate to severe mitral insufficiency and had an echo performed yesterday w/ the following changes compared to her last echo the left atrium now significantly larger however estimated pulmonary artery systolic pressure has fallen to normal. LVEF is 69%. Pt does have Pulm HTN most likely from WILBUR, MV insufficiency. Heart score 4. She presented to [facility] in 2017 w/similar symptoms, had a NM stress test and it was negative. I considered PE w/her mild SOB and chest pain however PE is unlikely since she is properly anticoagulated. -Initial trop and EKG negative; cycle trop Q6H x 2 and EKG Q6H x 1 and then PRN -Cont tele/PCU monitoring -If above testing is negative, will NM stress test in AM #Indigestion: She occasionally takes pepcid for acid reflux symptoms which possibly could elicit CP symptoms -Maalox once -Protonix PO QD #Paroxysmal Atrial fibrillation: INR therapeutic range 2.0-3.0. INR 2.65 -Cont warfarin -Recheck INR in AM #WILBUR w/CPAP and oxygen #Chronic back pain: She was last admitted here w/back pain, subsequently on MRI she had diffuse disc bulge L4-L5 and received an epidural injection. Neurosurgery was consulted and she followed up w/them outpatient. They are not recommending surgery but instead referred her to a pain management doctor who she has yet to see. -Pain management -PT to evaluate and treat Diet: Regular VTE ppx: Warfarin Code: Full Dispo: Admit to obs <Williams Francis - Last Filed: 01/01/19 19:44> History and Physical - History of Present Illness Review of Systems Review of Systems: Physical Exam Physical Exam: Temp Pulse Resp BP Pulse Ox 36.7 C 77 16 125/68 H 95 01/01/19 15:52 01/01/19 19:39 01/01/19 19:39 01/01/19 19:39 01/01/19 19:39 O2 (L/minute) 2 Lab Data & Imaging Review 01/01/19 16:20 01/01/19 16:20 WBC 9.82 10^3/uL (3.80-9.50) H 01/01/19 16:20 RBC 4.03 10^6/uL (4.18-5.33) L 01/01/19 16:20 Hgb 12.7 g/dL (12.6-16.3) 01/01/19 16:20 Hct 39.1 % (38.0-47.0) 01/01/19 16:20 MCV 97.0 fL (81.5-99.8) 01/01/19 16:20 MCH 31.5 pg (27.9-34.1) 01/01/19 16:20 MCHC 32.5 g/dL (32.4-36.7) 01/01/19 16:20 RDW 14.3 % (11.5-15.2) 01/01/19 16:20 Plt Count 262 10^3/uL (150-400) 01/01/19 16:20 MPV 9.2 fL (8.7-11.7) 01/01/19 16:20 Neut % (Auto) 76.6 % (39.3-74.2) H 01/01/19 16:20 Lymph % (Auto) 13.6 % (15.0-45.0) L 01/01/19 16:20 [place] % (Auto) 8.2 % (4.5-13.0) 01/01/19 16:20 Eos % (Auto) 0.7 % (0.6-7.6) 01/01/19 16:20 Baso % (Auto) 0.2 % (0.3-1.7) L 01/01/19 16:20 Nucleat RBC Rel Count 0.0 % (0.0-0.2) 01/01/19 16:20 Absolute Neuts (auto) 7.51 10^3/uL (1.70-6.50) H 01/01/19 16:20 Absolute Lymphs (auto) 1.34 10^3/uL (1.00-3.00) 01/01/19 16:20 Absolute Monos (auto) 0.81 10^3/uL (0.30-0.80) H 01/01/19 16:20 Absolute Eos (auto) 0.07 10^3/uL (0.03-0.40) 01/01/19 16:20 Absolute Basos (auto) 0.02 10^3/uL (0.02-0.10) 01/01/19 16:20 Absolute Nucleated RBC 0.00 10^3/uL (0-0.01) 01/01/19 16:20 Immature Gran % 0.7 % (0.0-1.1) 01/01/19 16:20 Immature Gran # 0.07 10^3/uL (0.00-0.10) 01/01/19 16:20 PT 26.9 SEC (12.0-15.0) H 01/01/19 16:20 INR 2.65 (0.83-1.16) H 01/01/19 16:20 APTT 32.5 SEC (23.0-38.0) 01/01/19 16:20 Sodium 139 mEq/L (135-145) 01/01/19 16:20 Potassium 4.0 mEq/L (3.5-5.2) 01/01/19 16:20 Chloride 106 mEq/L (97-110) 01/01/19 16:20 Carbon Dioxide 25 mEq/l (22-31) 01/01/19 16:20 Anion Gap 8 mEq/L (6-14) 01/01/19 16:20 BUN 16 mg/dL (7-23) 01/01/19 16:20 Creatinine 0.6 mg/dL (0.6-1.0) 01/01/19 16:20 Estimated GFR > 60 01/01/19 16:20 Glucose 104 mg/dL (70-100) H 01/01/19 16:20 Calcium 9.0 mg/dL (8.5-10.4) 01/01/19 16:20 POC Troponin I 0.00 ng/mL (0.00-0.08) 01/01/19 16:28 TSH 2.080 uIU/mL (0.465-4.680) 01/01/19 16:20 Urine Color YELLOW 01/01/19 17:50 Urine Appearance HAZY 01/01/19 17:50 Urine pH 5.0 (5.0-7.5) 01/01/19 17:50 Ur Specific Worth 1.019 (1.002-1.030) 01/01/19 17:50 Urine Protein NEGATIVE (NEGATIVE) 01/01/19 17:50 Urine Ketones NEGATIVE (NEGATIVE) 01/01/19 17:50 Urine Blood NEGATIVE (NEGATIVE) 01/01/19 17:50 Urine Nitrate NEGATIVE (NEGATIVE) 01/01/19 17:50 Urine Bilirubin NEGATIVE (NEGATIVE) 01/01/19 17:50 Urine Urobilinogen NEGATIVE EU (0.2-1.0) 01/01/19 17:50 Ur Leukocyte Esterase TRACE (NEGATIVE) H 01/01/19 17:50 Urine RBC 1-3 /hpf (0-3) 01/01/19 17:50 Urine WBC 5-10 /hpf (0-3) H 01/01/19 17:50 Ur Epithelial Cells NONE SEEN /lpf (NONE-1+) 01/01/19 17:50 Urine Mucus TRACE /lpf (NONE-1+) 01/01/19 17:50 Urine Glucose NEGATIVE (NEGATIVE) 01/01/19 17:50 Assessment & Plan Assessment: Atrial fibrillation (Acute) Chest pain (Acute) Plan: Chart reviewed, patient personally examined, and case discussed with Hawa Odell NP. I agree with findings outlined above. Please see my separate note for additional details.
--- NOTE | 2019-01-01 19:09 | HOSPPROG ---
Hospitalist Progress Note Assessment/Plan: Case discussed with Hawa Odell INSURANCE LEGAL ASSISTANT. Agree with her findings with the following exceptions: Briefly, 78yo F with history of atrial fibrillation on warfarin, hyperlipidemia , MVP w/severe MR, WILBUR presents with chest pain. She was running errands earlier today when she felt flushed, very fatigued and short of breath. She went home and developed left sided chest pain. This is not exertional, pleuritic , or positional. It is not tender to palpation. She took some tums with no relief. In the ED, an ecg is non-ischemic and POC troponin was zero. She had similar presentations in 2014 and 2016. She had a lexiscan stress with MPI 2016 that was normal. She just had an echocardiogram done yesterday for monitoring of her MVP and MR that was unchanged from prior except her left atrium is larger. She is being admitted for further evaluation. Exam: No distress, alert and oriented, rrr, loud systolic murmur heard best at apex, lungs clear, abdomen soft and nondistended, no leg edema, no JVD. Labs: WBC 9.8. Hemoglobin and platelets normal. BMP normal. INR 2.65. TSH 2.08. POC troponin 0.00. UA with trace leukocyte esterase and 5-10 WBCs but otherwise unremarkable. ECG: NSR, borderline left axis, normal intervals, no right heart strain, no ST- T segment ischemic changes or changes from prior (reviewed by me) CXR: No acute cardiopulmonary process. New compression fracture at thoracolumbar junction (reviewed by me) Assessment/Plan: 1. Chest pain: Atypical for angina. Initial trop/ecg non-ischemic. Will trend serial troponins. Keep on telemetry. If ruled out for ACS in AM, would obtain lexiscan stress with MPI (unable to ambulate due to back pain). She is therapeutically anticoagulated making PE unlikely. 2. Atrial fibrillation: Sinus here. Continue home metoprolol and warfarin. 3. MVP w/severe MR: Echo done yesterday that was stable from prior. She has preserved LVEF and appears euvolemic. 4. WILBUR: Uses CPAP at night with nocturnal oxygen. 5. Hypothyroidism: Continue LT4 replacement at home dose. 6. HLD: Continue simvastatin. 7. H/o SVT: Noted on zio patch in the past. 8. Left sided sciatica: Recent admission for pain related to this. She has been relatively immobile leading to some deconditioning. Dispo: Admit under observation Objective: Vital Signs Temp Pulse Resp BP Pulse Ox 36.7 C 82 18 133/69 H 96 01/01/19 15:52 01/01/19 17:55 01/01/19 17:55 01/01/19 17:55 01/01/19 17:56 PT 26.9 SEC (12.0-15.0) H 01/01/19 16:20 INR 2.65 (0.83-1.16) H 01/01/19 16:20 ICD10 Worksheet Patient Problems: Problems Problem Status Onset Atrial fibrillation Acute Chest pain Acute Hypothyroidism Acute Low back pain Acute Radiculopathy Acute Thrombophlebitis of saphenous vein Acute
[2019-01-01] MEDS: ACETAMINOPHEN 500 MG TAB PO SCH (19:18)
[2019-01-01] MEDS: PANTOPRAZOLE SODIUM 40 MG TAB PO SCH (19:18)
[2019-01-01] MEDS ORDERED: HYDROmorphONE/DILAUDID 2 MG TAB PO PRN (19:26)
[2019-01-01] MEDS ORDERED: ATORVASTATIN CALCIUM 10 MG TAB PO SCH (21:00)
[2019-01-01] MEDS: FLUTICASONE/SALMETER 500/50MCG DISKUS IH SCH (21:29)
[2019-01-02 04:22] LABS: PLATELET COUNT 222 10^3/uL (150-400)
[2019-01-02 04:28] LABS: INR 2.8 (0.83-1.16); PROTIME(PATIENT) 28.1 SEC (12.0-15.0)
[2019-01-02] MEDS ORDERED: LEVOTHYROXINE 100 MCG TAB PO SCH (06:00)
[2019-01-02] MEDS: ACETAMINOPHEN 500 MG TAB PO SCH ×2 (06:24→12:57)
[2019-01-02] MEDS ORDERED: METOPROLOL SUCCINATE XR 25 MG TAB PO SCH (09:00)
[2019-01-02] MEDS ORDERED: MULTIVITAMINS 1 EACH TAB PO SCH (09:00)
[2019-01-02] MEDS ORDERED: REGADENOSON 0.4 MG/5 ML SYR IVP ONE (09:11)
[2019-01-02] MEDS: FLUTICASONE/SALMETER 500/50MCG DISKUS IH SCH (10:17)
--- NOTE | 2019-01-02 10:22 | CPR ---
[f rep st] NONINVASIVE CARDIAC PROCEDURE REPORT DATE OF PROCEDURE: 01/02/2019 REPORT TITLE: Lexiscan nuclear stress test. REASON FOR TEST: Chest pain. Resting EKG shows a sinus rhythm with slight left axis deviation. There are no arrhythmias. There a re no ischemic changes noted. Resting blood pressure 122/70, heart rate 86 and regular. She is asym ptomatic prior to testing. TEST PORTION: Lexiscan was injected, followed by saline flush. She did note mild flushing and short ness of breath. There were no EKG changes. Blood pressure 110/70, heart rate 81, peaked at 94, oxyg en saturation 92%. RECOVERY: She did spontaneously recover. Her resting blood pressure 110/70, heart rate 94, oxygen s aturation 96. She did get caffeine, which did help reduce the shortness of breath and flushing. At this time, she currently is stable for nuclear imaging. /[id number]/MODL
[2019-01-02 10:57] VITALS: BP 121/60
--- NOTE | 2019-01-02 12:18 | PDDCSUM ---
Discharge Summary Discharge Summary: HPI/HOSPITAL COURSE 78yo F with history of atrial fibrillation on warfarin, hyperlipidemia, MVP w/ severe MR, WILBUR presents with chest pain. She was running errands earlier today when she felt flushed, very fatigued and short of breath. She went home and developed left sided chest pain. This is not exertional, pleuritic, or positional. It is not tender to palpation. She took some tums with no relief. In the ED, an ecg is non-ischemic and POC troponin was zero. She had similar presentations in 2014 and 2017. She just had an echocardiogram done this week for her MVP and MR that was unchanged from prior except her left atrium is larger. She was admitted for further w/u and mgmt. She had resolution of her chest pain while in the ER and had no recurrence. She feels back to baseline and has no chest pain. She had troponin, EKG, telemetry that were negative for ischemia. She had a Yasmin stress test with nuclear medicine imaging. The stress test was unremarkable. The nuclear medicine scan shows small fixed anteroseptal and lateral perfusion defects that are possibly related to prior infarct, however, there is no e/o of ischemia. The EF was normal. There is no wall motion abnormalities. Given that she is non symptomatic, hopes to discharge, and her w/u has been essentially unremarkable for acute ischemia, she will be d/c home with f/u with her Canopy Inspector Dr. Milan at the [facility]. She has f/u with her at the beginning of January but the pt tells me that she will have a discussion with her to review her recent echo and can ask for a sooner appointment with her. Exam: No distress, alert and oriented, rrr, loud systolic murmur heard best at apex, lungs clear, abdomen soft and nondistended, no leg edema, no JVD. Labs:Trops unremarkable. WBC 9.8. Hemoglobin and platelets normal. BMP normal. INR 2.65. TSH 2.08. POC troponin 0.00. UA with trace leukocyte esterase and 5- 10 WBCs but otherwise unremarkable. ECG: NSR, borderline left axis, normal intervals, no right heart strain, no ST- T segment ischemic changes or changes from prior CXR: No acute cardiopulmonary process. New compression fracture at thoracolumbar junction (reviewed by me) Discharge Diagnosis: 1. Chest pain: Atypical for angina. Initial trop/ecg non-ischemic. 2. Atrial fibrillation: Sinus here. Continue home metoprolol and warfarin. 3. MVP w/severe MR: Echo done this week that was stable from prior. She has preserved LVEF and appears euvolemic. 4. WILBUR: Uses CPAP at night with nocturnal oxygen. 5. Hypothyroidism: Continue LT4 replacement at home dose. 6. HLD: Continue simvastatin. 7. H/o SVT: Noted on zio patch in the past. 8. Left sided sciatica: Recent admission for pain related to this. She has been relatively immobile leading to some deconditioning. Meds: no med adjustments were made F/U: per above total time spent on d/c is 35 mins
--- NOTE | 2019-01-02 12:38 | ASDISCHSUM ---
Discharge Information Plan Status:Home with No Needs Medically Cleared to Leave:01/02/2019 Discharge Date:01/02/2019 CM D/C Disposition:Home, Routine, Self-Care ADT D/C Disposition:Home, Routine, Self-Care Projected Discharge Date:01/02/2019 Transportation at D/C: Discharge Delay Reason: Follow-Up Date:01/02/2019 Discharge Slot: Final Diagnosis: Placement Information Patient Contact Information Contact Name:JUSTIN Relationship: Address:[address] City:[place] Alternate Phone: [facility]/Zip Code:[place] [address] Email: Financial Information Financial Class:BCOP Primary Plan Desc:[facility] CU PLAN Primary Plan Number:[id number] Secondary Plan Desc: Secondary Plan Number: Assessment Information LACE LACE Length of stay for Answers: Less than 1 day current admission Acuity / Level of Answers: No Care: Did the patient have an inpatient admission? Comorbidities - select Answers: Opioid dependence all that apply / Chronic pain Other Notes: AFib; HLD; Hypothyroid # of Emergency department Answers: 1-2 visits in the last 6 months Score: 6 Date Signed: 01/02/2019 12:37 PM Electronically Signed By:Gabrielle Leblanc RN Intervention Information Intervention Type:*SAGRARIO-Signed Date of Service:01/02/2019 11:37 AM Patient Type:Observation Staff Member:Sarah Benjamin Hours: Discipline: Severity: Comment:
[2019-01-02] MEDS: PANTOPRAZOLE SODIUM 40 MG TAB PO SCH (12:54)
[2019-01-02] MEDS ORDERED: WARFARIN SODIUM 7.5 MG TAB PO SCH (13:00)
[2019-01-03] MEDS ORDERED: WARFARIN SODIUM 7.5 MG TAB PO SCH (12:00)
[2019-01-04] MEDS ORDERED: LEVOTHYROXINE 50 MCG TAB PO SCH (06:00)
--- NOTE | 2019-01-04 15:18 | CPEKG ---
Test Reason : OPEN Blood Pressure : / mmHG Vent. Rate : 086 BPM Atrial Rate : 086 BPM P-R Int : 153 ms QRS Dur : 089 ms QT Int : 371 ms P-R-T Axes : 040 -25 038 degrees QTc Int : 444 ms Sinus rhythm Borderline left axis deviation Confirmed by Hunter Stewart [id number] on 01/04/2019 3:17:58 PM Referred By: Hunter Stewart Confirmed By:Hunter Stewart
== END 2019-01-02 15:00 | disposition home or self-care (01) ==
LOC: F2W 19:55
PROVIDERS: ADMIT Internal Medicine; ATTEND Internal Medicine
DX: R07.9 Chest pain, unspecified (principal); I48.0 Paroxysmal atrial fibrillation; I34.1 Nonrheumatic mitral (valve) prolapse; G47.33 Obstructive sleep apnea (adult) (pediatric); E03.9 Hypothyroidism, unspecified; E78.5 Hyperlipidemia, unspecified; I27.20 Pulmonary hypertension, unspecified; K21.9 Gastro-esophageal reflux disease without esophagitis; M54.40 Lumbago with sciatica, unspecified side
CPT/HCPCS: 71046; 78452; 93005; 93017; A9500; G0378; 84484-ER; J2785